=== PATIENT | female | born 1930 | race Caucasian/White ===

== ENCOUNTER 2017-05-12 05:52 | Inpatient (IN) ==
[2017-05-12 06:35] LABS: Basophils # 0.1 K/mcL (0.0-0.2); Basophils % 0.7 %; Eosinophils # 0.2 K/mcL (0.0-0.6); Eosinophils % 1.8 %; Hematocrit 35.9 % (35.3-44.9); Hemoglobin 11.8 g/dL (11.5-15.4); Immature Granulocytes % 0.5 % (0-4); Lymphocytes # 1.6 K/mcL (0.6-4.6); Lymphocytes % 15.3 %; Mean Corpuscular HGB Conc 32.9 g/dL (31.6-35.5); Mean Corpuscular Hemoglobin 30.4 pg (28.0-33.3); Mean Corpuscular Volume 92.5 fL (83.0-100.0); Mean Platelet Volume 10.7 fL (9.4-12.4); Monocytes # 0.6 K/mcL (0.0-1.3); Monocytes % 5.6 %; Neutrophils # 7.8 K/mcL (1.6-8.9); Platelet Count 155 K/mcL (140-400); Red Blood Count 3.88 M/mcL (3.82-4.97); Red Cell Distribution Width 13.4 % (11.5-14.5); Segmented Neutrophils % 76.1 %
[2017-05-12 06:40] LABS: INR 1.3
[2017-05-12 06:42] LABS: Activated Partial Thrombo Time 31.6 Seconds (26.0-36.0)
[2017-05-12 06:47] LABS: BUN/Creatinine Ratio 20 (6-26); Blood Urea Nitrogen 15 mg/dL (7-20); Calcium 9.2 mg/dL (8.6-10.8); Carbon Dioxide 25 mEq/L (19-29); Chloride 105 mEq/L (98-109); Glucose 113 mg/dL (70-99); Osmolality,Calculated 288 (280-300); Potassium 3.9 mEq/L (3.5-4.5); Sodium 138 mEq/L (136-145); eGFR For African Americans > 60 (> 60); eGFR For Non-African Americans > 60 (> 60)
--- NOTE | 2017-05-12 06:54 | Emergency Department Note ---
Disposition Clinical Impression: CVA (cerebral vascular accident) Qualifiers: CVA mechanism: thrombosis Precerebral and cerebral artery: unspecified precerebral artery Qualified Code(s): I63.00 - Cerebral infarction due to thrombosis of unspecified precerebral artery Disposition: Admitted As Inpatient Condition: Critical Time of Disposition: 07:09 General Adult HPI - General Chief complaint: ED Altered Mental Status Stated complaint: AMS Time Seen by Provider: 05/12/17 06:00 Source: patient, family, EMS Limitations: no limitations Nursing Notes Reviewed: Yes Vital Signs Reviewed: Yes - History of Present Illness HPI Narrative: Mrs. Stephenson, an 87yo female, presents from home via EMS. Patient alerted with her life alert button summoning EMS. She was found beside her bed on the floor with right-sided flaccidity. Patient was by herself. Her daughter's bedside. Last known well is 17:45 last night; 12 hours prior to arrival. Patient's baseline is that of independence; she was driving, managing her own lawn care, alert, active. PMH: Hyperlipidemia, hypothyroidism. No history of CAD, ACS, dysrhythmias, coagulopathies. Unknown if patient takes daily aspirin. Patient does not have daily anticoagulant. Pain Scale: 0 - Related Data Home Medications Medication Instructions Recorded Confirmed Atenolol [Tenormin] 25 mg PO DAILY 05/12/17 05/12/17 Pravastatin Sodium 10 mg PO DAILY 05/12/17 05/12/17 methIMAzole [Methimazole] 10 mg PO DAILY 05/12/17 05/12/17 Allergies Allergy/AdvReac Type Severity Reaction Status Date / Time No Known Allergies Allergy Verified 05/12/17 05:55 All systems ED: reviewed and negative except as stated. Past Medical History - Past Medical History Medical history: Reports: hyperlipidemia, thyroid disease - Social History Smoking Status: Current every day smoker Smokeless Tobacco Status: No Alcohol use: Reports: rarely Drug use: Reports: none Physical Exam Vital Signs Reviewed General: Patient is alert, oriented, and in denies pain. HEENT: Facial ghjzweokx-penyf-fwewu facial droop. Head is normocephalic and atraumatic. PERRLA, EOMI. oral mucosa tacky. Trachea midline. Cardiovascular: Heart regular rate and rhythm without clicks, rubs, gallops, or murmurs. No JVD. PMI nondisplaced. Respiratory: Symmetric chest rise with good respiratory effort. Bilateral breath sounds are clear without wheezing, crackles, or rhonchi. Abdomen: Bowel sounds present normoactive x-4 quadrants. Abdomen is soft, nondistended, and nontender. Musculoskeletal: Left upper extremity and left lower extremity strength is 0/5. Muscle strength 5/5 and symmetric in left upper and lower extremities. Neuro: Patient is nonverbal; unable to form words; communicating with nod/shake of head. Psych: Patient's affect is appropriate for situation. - General Limitations: no limitations General appearance: alert, in no apparent distress Course Course Narrative: Patient's presentation is concerning for acute CVA. Last known normal is 4 hours prior to arrival. As such, will not call a code stroke this time. Patient has profound generalized right sided weakness including right-sided facial droop, right upper and lower extremities full to the bed. She is unable to speak but does comprehend and is able to answer questions with a nod or shake of her head. She states that she is able to find words but simply cannot enunciate or verbalize. CT head does not show a hemorrhage. Patient has elevated troponin of 0.14. Patient is nothing by mouth at this time; will provide aspirin rectally. I discussed in detail with the daughter are concerned for her mother's symptoms and specifically touched on the therapeutic window and how the patient is well outside of this window. Discussed the need for inpatient admission with neurology consultation and MRI. She expresses understanding of this time though is understandably taken aback by the situation as a whole. Patient signed out to the day team, Dr. Marin. Pending: laboratory results To do: neurology consult, admission. Vital Signs Temperature 98.4 F 05/12/17 05:55 Pulse Rate 76 05/12/17 05:55 Respiratory Rate 14 05/12/17 05:55 Blood Pressure 169/99 05/12/17 05:55 O2 Sat by Pulse Oximetry 98 05/12/17 05:55 Temperature 98.7 F 05/12/17 18:52 Pulse Rate 77 05/12/17 18:52 Respiratory Rate 14 05/12/17 18:52 Blood Pressure 171/80 05/12/17 18:52 O2 Sat by Pulse Oximetry 93 05/12/17 18:52 Oxygen Delivery Oxygen Delivery Room Air Medical Decision Making - Lab Data Result diagrams: 05/12/17 06:27 05/12/17 06:25 Lab Results 05/12/17 05/12/17 05/12/17 Range/Units 05:57 06:05 06:25 WBC (4.3-11.1) K/mcL RBC (3.82-4.97) M/mcL Hgb (11.5-15.4) g/dL Hct (35.3-44.9) % MCV (83.0-100.0) fL MCH (28.0-33.3) pg MCHC (31.6-35.5) g/dL RDW (11.5-14.5) % Plt Count (140-400) K/mcL MPV (9.4-12.4) fL Immature Gran % (0-4) % Seg Neutrophils % % Lymphocytes % % Monocytes % % Eosinophils % % Basophils % % Neutrophils # (1.6-8.9) K/mcL Lymphocytes # (0.6-4.6) K/mcL Monocytes # (0.0-1.3) K/mcL Eosinophils # (0.0-0.6) K/mcL Basophils # (0.0-0.2) K/mcL Immature Plt Fraction (1.1-6.1) % PT 14.0 H (9.4-12.1) Seconds INR 1.3 APTT 31.6 (26.0-36.0) Seconds Sodium (136-145) mEq/L Potassium (3.5-4.5) mEq/L Chloride (98-109) mEq/L Carbon Dioxide (19-29) mEq/L BUN (7-20) mg/dL Creatinine (0.57-1.11) mg/dL Est GFR ( Amer) (> 60) Est GFR (Non-Af Amer) (> 60) BUN/Creatinine Ratio (6-26) Glucose (70-99) mg/dL POC Glucose 117 H (58-89) Calculated Osmolality (280-300) Calcium (8.6-10.8) mg/dL Troponin I (0-0.03) ng/mL Specimen Rejected Hemolyzed 05/12/17 05/12/17 05/12/17 Range/Units 06:25 06:25 06:27 WBC 10.3 (4.3-11.1) K/mcL RBC 3.88 (3.82-4.97) M/mcL Hgb 11.8 (11.5-15.4) g/dL Hct 35.9 (35.3-44.9) % MCV 92.5 (83.0-100.0) fL MCH 30.4 (28.0-33.3) pg MCHC 32.9 (31.6-35.5) g/dL RDW 13.4 (11.5-14.5) % Plt Count 155 (140-400) K/mcL MPV 10.7 (9.4-12.4) fL Immature Gran % 0.5 (0-4) % Seg Neutrophils % 76.1 % Lymphocytes % 15.3 % Monocytes % 5.6 % Eosinophils % 1.8 % Basophils % 0.7 % Neutrophils # 7.8 (1.6-8.9) K/mcL Lymphocytes # 1.6 (0.6-4.6) K/mcL Monocytes # 0.6 (0.0-1.3) K/mcL Eosinophils # 0.2 (0.0-0.6) K/mcL Basophils # 0.1 (0.0-0.2) K/mcL Immature Plt Fraction 6.0 (1.1-6.1) % PT (9.4-12.1) Seconds INR APTT (26.0-36.0) Seconds Sodium 138 (136-145) mEq/L Potassium 3.9 (3.5-4.5) mEq/L Chloride 105 (98-109) mEq/L Carbon Dioxide 25 (19-29) mEq/L BUN 15 (7-20) mg/dL Creatinine 0.76 (0.57-1.11) mg/dL Est GFR ( Amer) > 60 (> 60) Est GFR (Non-Af Amer) > 60 (> 60) BUN/Creatinine Ratio 20 (6-26) Glucose 113 H (70-99) mg/dL POC Glucose (58-89) Calculated Osmolality 288 (280-300) Calcium 9.2 (8.6-10.8) mg/dL Troponin I 0.14 H* (0-0.03) ng/mL Specimen Rejected Attestation Statement - Attestation Attestation: I, Zac Felton MD, personally evaluated this patient and discussed their management with the resident physician. I reviewed the resident's note and agree with the documented findings, medical decision making, and plan of care. 87-year-old female presents to the emergency department with acute neurological deficits. Last known well was 12 hours prior to arrival. Patient presents with complete a facial, right facial droop, and flaccid right arm and right leg. Patient unable to provide any history or review of systems. She is alert and follows commands. On examination patient is a well-developed well-nourished elderly female in no acute distress. She is alert. There is no cyanosis or diaphoresis. Breath sounds are clear and equal bilaterally. Heart regular rate and rhythm. Abdomen soft with normal bowel sounds. Patient has completed a facial. Right facial droop. Right arm and right leg are flaccid. She does have movement of the left arm and left leg. Head CT showed no acute intracranial abnormality. Labs reviewed and unremarkable other than troponin 0.13. At shift change patient [facility]. NIH Stroke Scale - Level of Consciousness LOC: Alert - LOC Questions LOC Questions: Answers both correctly - LOC Commands LOC Commands: Performs both correctly - Best Gaze Best Gaze: Normal - Visual Visual: No visual loss - Facial Palsy Facial Palsy: Partial, total, or near-total paralysis of lower face - Motor Arms Motor Arm-Left: No drift for 10 seconds Motor Arm-Right: No effort against gravity, limb falls to bed, some movement - Motor Legs Motor Leg-Left: No drift for 5 seconds Motor Leg-Right: No effort against gravity, limb falls to bed, some movement - Limb Ataxia Limb Ataxia: Absent of affected limb too weak to perform exam - Sensory Sensory: Mild to moderate loss, "not as sharp" - Best Language Best Language: Mute, no usable speech - Dysarthria Dysarthria: Severe, slurred speech unintelligible or mute - Extinction and Inattention Extinction and Inattention: Normal - NIHSS Total Score NIHSS Total Score: 14
--- NOTE | 2017-05-12 07:28 | Emergency Department Note ---
Disposition Clinical Impression: CVA (cerebral vascular accident) Qualifiers: CVA mechanism: unspecified Qualified Code(s): I63.9 - Cerebral infarction, unspecified Disposition: Admitted As Inpatient Condition: Critical Referrals: Priyanka Torres MD [Primary Care Provider] - Forms: ED Satisfaction Letter Time of Disposition: 07:28 General Adult HPI - General Chief complaint: ED Altered Mental Status Stated complaint: Weakness/AMS Time Seen by Provider: 05/12/17 06:00 Source: patient, family, EMS Limitations: no limitations - History of Present Illness Pain Scale: 0 - Related Data Home Medications Medication Instructions Recorded Confirmed Atenolol [Tenormin] 25 mg PO DAILY 05/12/17 05/12/17 Pravastatin Sodium 10 mg PO DAILY 05/12/17 05/12/17 methIMAzole [Methimazole] 10 mg PO DAILY 05/12/17 05/12/17 Allergies Allergy/AdvReac Type Severity Reaction Status Date / Time No Known Allergies Allergy Verified 05/12/17 05:55 Past Medical History - Past Medical History Medical history: Reports: hyperlipidemia, thyroid disease - Social History Smoking Status: Current every day smoker Smokeless Tobacco Status: No Alcohol use: Reports: rarely Drug use: Reports: none Physical Exam - General Limitations: no limitations General appearance: alert, in no apparent distress Course - Reevaluation(s) Reevaluation #1: 87-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 Workup included a CT scan which was negative. Patient does not meet criteria for TPA. Consultation with neurology and they will see the patient in consultation. Time: 07:27 - Consultations Consultation #1: Discussed with , admit. Time: 07:42 Vital Signs Temperature 98.4 F 05/12/17 05:55 Pulse Rate 76 05/12/17 05:55 Respiratory Rate 14 05/12/17 05:55 Blood Pressure 169/99 05/12/17 05:55 O2 Sat by Pulse Oximetry 98 05/12/17 05:55 Temperature 98.4 F 05/12/17 05:55 Pulse Rate 71 05/12/17 07:37 Respiratory Rate 19 05/12/17 07:37 Blood Pressure 155/83 05/12/17 07:37 O2 Sat by Pulse Oximetry 96 05/12/17 06:46 Oxygen Delivery Oxygen Delivery Room Air Medical Decision Making - Lab Data Lab results reviewed: Yes I reviewed the patient's lab results. Result diagrams: 05/12/17 06:27 05/12/17 06:25 Lab Results 05/12/17 05/12/17 05/12/17 Range/Units 06:05 06:25 06:25 WBC (4.3-11.1) K/mcL RBC (3.82-4.97) M/mcL Hgb (11.5-15.4) g/dL Hct (35.3-44.9) % MCV (83.0-100.0) fL MCH (28.0-33.3) pg MCHC (31.6-35.5) g/dL RDW (11.5-14.5) % Plt Count (140-400) K/mcL MPV (9.4-12.4) fL Immature Gran % (0-4) % Seg Neutrophils % % Lymphocytes % % Monocytes % % Eosinophils % % Basophils % % Neutrophils # (1.6-8.9) K/mcL Lymphocytes # (0.6-4.6) K/mcL Monocytes # (0.0-1.3) K/mcL Eosinophils # (0.0-0.6) K/mcL Basophils # (0.0-0.2) K/mcL Immature Plt Fraction (1.1-6.1) % PT 14.0 H (9.4-12.1) Seconds INR 1.3 APTT 31.6 (26.0-36.0) Seconds Sodium 138 (136-145) mEq/L Potassium 3.9 (3.5-4.5) mEq/L Chloride 105 (98-109) mEq/L Carbon Dioxide 25 (19-29) mEq/L BUN 15 (7-20) mg/dL Creatinine 0.76 (0.57-1.11) mg/dL Est GFR ( Amer) > 60 (> 60) Est GFR (Non-Af Amer) > 60 (> 60) BUN/Creatinine Ratio 20 (6-26) Glucose 113 H (70-99) mg/dL Calculated Osmolality 288 (280-300) Calcium 9.2 (8.6-10.8) mg/dL Troponin I (0-0.03) ng/mL Specimen Rejected Hemolyzed 05/12/17 05/12/17 Range/Units 06:25 06:27 WBC 10.3 (4.3-11.1) K/mcL RBC 3.88 (3.82-4.97) M/mcL Hgb 11.8 (11.5-15.4) g/dL Hct 35.9 (35.3-44.9) % MCV 92.5 (83.0-100.0) fL MCH 30.4 (28.0-33.3) pg MCHC 32.9 (31.6-35.5) g/dL RDW 13.4 (11.5-14.5) % Plt Count 155 (140-400) K/mcL MPV 10.7 (9.4-12.4) fL Immature Gran % 0.5 (0-4) % Seg Neutrophils % 76.1 % Lymphocytes % 15.3 % Monocytes % 5.6 % Eosinophils % 1.8 % Basophils % 0.7 % Neutrophils # 7.8 (1.6-8.9) K/mcL Lymphocytes # 1.6 (0.6-4.6) K/mcL Monocytes # 0.6 (0.0-1.3) K/mcL Eosinophils # 0.2 (0.0-0.6) K/mcL Basophils # 0.1 (0.0-0.2) K/mcL Immature Plt Fraction 6.0 (1.1-6.1) % PT (9.4-12.1) Seconds INR APTT (26.0-36.0) Seconds Sodium (136-145) mEq/L Potassium (3.5-4.5) mEq/L Chloride (98-109) mEq/L Carbon Dioxide (19-29) mEq/L BUN (7-20) mg/dL Creatinine (0.57-1.11) mg/dL Est GFR ( Amer) (> 60) Est GFR (Non-Af Amer) (> 60) BUN/Creatinine Ratio (6-26) Glucose (70-99) mg/dL Calculated Osmolality (280-300) Calcium (8.6-10.8) mg/dL Troponin I 0.14 H* (0-0.03) ng/mL Specimen Rejected - Radiology Data Radiology results reviewed: Yes I reviewed the patient's radiology results. Head CT 05/12/17 06:02 IMPRESSION: No acute intracranial abnormality. Mild chronic small vessel ischemic disease within the periventricular white matter D/ / Joseph Bowen MD / Joseph Bowen MD Interpreting Provider: Joseph Bowen MD - EKG Data EKG #1 EKG attestation: Yes I reviewed and interpreted this EKG. EKG shows normal: sinus rhythm Rate: normal Rhythm: NSR Interpretation: no acute changes
[2017-05-12] MEDS ORDERED: *HR* Morphine 2 MG/ML SYRINGE IVP PRN (10:28)
[2017-05-12] MEDS ORDERED: Naloxone 0.4 MG/ML INJ IVP PRN (10:28)
[2017-05-12] MEDS ORDERED: Ondansetron 4 MG/2 ML VIAL IVP PRN (10:28)
[2017-05-12] MEDS ORDERED: Nicotine 21 MG PATCH.TD24 TD PRN (10:40)
[2017-05-12] MEDS: 0.9 % Sodium Chloride 1,000 ML IVC SCH (11:13)
--- NOTE | 2017-05-12 12:44 | Neurology - Consult Note ---
Date of Encounter: 05/12/17 Time of Encounter: 12:42 Assessment and Plan (1) CVA (cerebral vascular accident) Current Visit: Yes Status: Acute Patient is an 87 year old woman with HTN who developed acute onset of speech difficulty, mutism, right sided weakness. LKW 12 hours prior to evaluation. MRI of brain showed acute cerebral infarct to both hemisphere as well as left basal ganglia. this is concerning for embolic (central) or bilateral thromboembolic events. Will need full stroke work up including CTA of neck and brain, VINCENT. carotid artery duplex and Dr. James Vergara is onboard and discuss with the carotid artery duplex findings. While stroke work up is being completed will start her on Heprain drip no bolus. Will recommend VINCENT to assess source of emboli. Expected that the patient will have substantial speech deficit and right sided weakness due to the fact the left BG size is large. Continue DTV prophylaxis, swallow evaluation, speech therapy and inpatient PT. Qualifiers: CVA mechanism: thrombosis Precerebral and cerebral artery: unspecified precerebral artery Qualified Code(s): I63.00 - Cerebral infarction due to thrombosis of unspecified precerebral artery History of Present Illness Chief complaint: inability to talk, right sided weakness HPI: Ms. Stephenson is a 87 year old female with PMH significant for HTN, hyperthyroidism hyperlipidemia who developed acute onset of speech difficulty and right sided weakness. Daughter Angela reported that the yesterday about 4-5pm the patient's life monitoring device went off and medical squad was notified. The patient was found to have speech difficulty and right sided weakness. Patient was subsequently brought to ER and her last known well time was about 12 hours earlier. She was thought not to be a candidate for tPA thrombolysis. MRI of brain showed IMPRESSION: Acute infarct within the left mid strickland radiata extending into the ipsilateral basal ganglia, with additional microinfarcts seen within the high left frontoparietal lobe and right parieto-occipital lobe. Possible partial thrombosis of the left MCA. Patient current is mute and has left head and eye gaze preference and right sided paralysis. She does not make eye contact but does follow simple commands. Past Med Surg Social Fam HX - Past Medical History Medical history: hyperlipidemia, thyroid disease - Social History Smoking Status: Current every day smoker Packs per day: .5 Smokeless Tobacco Status: No Alcohol use: rarely Drug use: none - Family History Mother Living Status: Hx Family Cardiac Disorders: Yes Medications and Allergies Atenolol [Tenormin] 25 mg PO DAILY 05/12/17 [History] Pravastatin Sodium 10 mg PO DAILY 05/12/17 [History] methIMAzole [Methimazole] 10 mg PO DAILY 05/12/17 [History] 3 Allergy/AdvReac Type Severity Reaction Status Date / Time No Known Allergies Allergy Verified 05/12/17 05:55 All Systems: A 10-system review of systems was performed and is negative for pertinent findings except as documented above in the HPI. Physical Examination - Vital Signs Vital Signs: Initial Vital Signs Temp Pulse Resp BP Pulse Ox 98.4 F 76 14 169/99 98 05/12/17 05:55 05/12/17 05:55 05/12/17 05:55 05/12/17 05:55 05/12/17 05:55 - Constitutional General appearance: chronically ill - Neurologic Sensorimotor examination: other (Unable to assess due to aphasia) Motor examination - right side: 2/5: deltoids, biceps, triceps, wrist flexion, wrist extension, pulmonary nurse practitioner, 4/5: hip flexors, tibialis Anterior, quadriceps, toe extension (EHL), plantarflexion Motor examination - left side: 5/5: deltoids, biceps, triceps, wrist flexion, wrist extension, hip flexors, pulmonary nurse practitioner, quadriceps, tibialis Anterior, toe extension (EHL), plantarflexion Detailed sensory examination: other (unable to assess due to aphasia) Posture: other Reflex and gait examination: other (Gait not assessed) Reflexes: Biceps: 1+, Triceps: 1+, Brachioradialis: 1+, Patella: 1+, Achilles: 1 + Mental Status Examination: awake, alert, follows simple commands, expressive aphasia (Patient essentially mute) Cranial nerve examination: PERRL, EOMI (gaze preference to left side, along with head preference to the left side as well), visual childers intact (Unable to assess), corneal reflexes brisk symmetrically, sensory to face intact, mastication intact, no facial asymmetry is present, no dysarthria (Patient is mute), soft palate elevates bilaterally upon phonation (Uanble to assess), gag reflex intact (Unable to assess), flexes SCM and trapezius muscles symmetrically with full power (Unable to assess) Results - Laboratory Findings CBC and BMP: 05/12/17 06:27 05/12/17 06:25 Abnormal lab findings: Abnormal lab results PT 14.0 Seconds (9.4-12.1) H 05/12/17 06:25 Glucose 113 mg/dL (70-99) H 05/12/17 06:25 Troponin I 0.12 ng/mL (0-0.03) H* 05/12/17 10:59 Consult Discharge Plan - Plan Referrals: Priyanka Torres MD [Primary Care Provider] -
--- NOTE | 2017-05-12 14:35 | Internal Med History&Physical ---
Date of Encounter: 05/12/17 Time of Encounter: 09:30 Assessment and Plan (1) CVA (cerebral vascular accident) Current visit: Yes Status: Acute New-onset of motor aphasia and right-sided weakness. CT head shows no acute infarct/bleed. Will get MRI brain, bilateral carotid Doppler and transthoracic echocardiogram.continue telemetry monitoring, cycle troponins. Noted to have mild troponin elevation, possibly related to acute stroke. Continue rectal aspirin. Check lipid profile and hemoglobin A1c. Monitor blood pressure closely. Neurology has been consulted by emergency room physician, will follow-up recommendations. Bedside swallow evaluation. Physical and occupational therapy evaluation. Qualifiers: CVA mechanism: thrombosis Precerebral and cerebral artery: unspecified precerebral artery Qualified Code(s): I63.00 - Cerebral infarction due to thrombosis of unspecified precerebral artery (2) Essential hypertension Current visit: Yes Status: Chronic Blood pressure currently stable. He will allow permissive hypertension, will use when necessary IV hydralazine for appropriate control. Unable to take oral antihypertensives at this time. (3) Tobacco abuse Current visit: Yes Status: Chronic Smoking cessation counseling cannot be done at this time due to patient's mental status. We will order nicotine transdermal patch as needed. (4) Graves disease Current visit: Yes Status: Chronic Check thyroid function profile. We will hold methimazole for now as she cannot tolerate by mouth meds. Internal Medicine - H&P: HPI Chief complaint: Aphasia Admitted From: Emergency Dept Plans for Post Hospital Care: Transfer Group Home Facility History of present illness: Ms. Stephenson is a 87 year old female with history of tobacco abuse was brought in by EMS after her medical life alert was activated. She is currently unable to provide any history, which is up to and from her daughters at bedside. Patient is usually healthy with good functional status, ADL independent and lives alone at home. Upon arrival, patient was noted to be lying on the floor beside her bed. Last known time of feeling well was last evening at around 1745 by her daughter. The patient was unable to speak since she was found although she seems to understand. She does have a baseline hearing loss. She was also unable to move her right hand and leg since this morning. No reported recent infections. No cough, chest congestion, urinary complaints, fever or chills in the recent past. No vomiting or respiratory distress noted when the patient was found. Past Med Surg Social Fam HX - Past Medical History Medical history: hyperlipidemia, hypertension, thyroid disease - Past Surgical History Surgical History: other (Tubal ligation and reversal, spinal surgery), vascular surgery (Varicose vein stripping ) - Social History Smoking Status: Current every day smoker Packs per day: 0.75 Smokeless Tobacco Status: No Alcohol use: rarely Drug use: none Occupational status: disabled Current living situation: Home - Independent Activity Level: Independent ambulation Recent Out of Country Travel Within the Last 8 Weeks: No Exposure or Possible Exposure to Illness During Travel: No - Family History Mother Living Status: Hx Family Cardiac Disorders: Yes Internal Medicine - H&P: Meds Atenolol [Tenormin] 25 mg PO DAILY 05/12/17 [History] Pravastatin Sodium 10 mg PO DAILY 05/12/17 [History] methIMAzole [Methimazole] 10 mg PO DAILY 05/12/17 [History] 3 Allergy/AdvReac Type Severity Reaction Status Date / Time No Known Allergies Allergy Verified 05/12/17 05:55 All Systems PM: A 10-system review of systems was performed and is negative for pertinent findings except as documented above in the HPI. - Constitutional Constitutional: fatigue, weakness, no chills, no fever(s), no night sweats - EENT Eyes: no change in vision, no discharge, no pain, no photophobia Ears: no ear discharge, no ear pain, no tinnitus Nose, mouth and throat: no dysphagia, no nasal discharge, no neck pain, no sore throat - Cardiovascular Cardiovascular ROS IM: no chest pain, no diaphoresis, no dyspnea, no lightheadedness, no palpitations, no syncope - Respiratory Respiratory: no cough, no dyspnea, no wheezing, no excessive phlegm production - Gastrointestinal Gastrointestinal: no abdominal pain, no diarrhea, no hematemesis, no hematochezia, no melena, no nausea, no vomiting - Genitourinary Genitourinary: no change in urinary stream, no dysuria, no flank pain, no hematuria - Musculoskeletal Musculoskeletal ROS IM: muscle weakness, numbness, no tingling - Integumentary Integumentary IM: no rash, no unusual bruising - Neurological Neurological ROS: as per HPI, abnormal speech, numbness, weakness - Hematologic/Lymphatic Hematologic/Lymphatic: no easy bruising - Constitutional Vitals: Temp Pulse Resp BP Pulse Ox 97.7 F 71 15 147/77 95 05/12/17 11:29 05/12/17 11:29 05/12/17 11:29 05/12/17 11:29 05/12/17 11:29 General appearance: Present: A&O X 1. Absent: answers questions appropriately - Respiratory Respiratory exam: Present: CTAB (Coarse breath sounds anterolaterally ). Absent : accessory muscle use, rales, rhonchi, wheezes - Cardiovascular Cardiovascular exam: Present: RRR, +S1, +S2. Absent: diastolic murmur, gallop, rubs, systolic murmur - GI/Abdominal GI/Abdominal exam: Present: normal bowel sounds, soft, no peritoneal signs. Absent: distended, tenderness - Extremities Exam Extremities exam: Present: full ROM (Restricted in right upper and lower extremity ), warm, radial pulses palpable and symmetrical. Absent: calf tenderness, cyanotic, pedal edema - Neurological Exam Neurological exam: Present: CN II-XII intact (right facial droop), no focal deficits (right-sided weakness), strengths equal and symetr throughout (motor power 0/5 in right UE and LE), pronater drift, facial droop, speech deficit ( global aphasia- motor) - Skin Skin exam: Present: dry, intact Internal Med - H&P Results - Labs CBC & Chem 7: 05/12/17 06:27 05/12/17 06:25 Labs: Cardiac Enzymes 05/12/17 Range/Units 10:59 Troponin I 0.12 H* (0-0.03) ng/mL - EKG Data -: EKG Interpreted by Myself EKG shows normal: sinus rhythm Rate: normal
--- NOTE | 2017-05-12 16:59 | Electrocardiograph Report ---
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
[2017-05-12] MEDS ORDERED: *HR* Heparin 5,000 UNIT/ML VIAL SQ SCH (18:00)
[2017-05-12] MEDS ORDERED: *HR* Heparin 5,000 UNIT/ML VIAL IVP PRN (18:18)
[2017-05-12] MEDS ORDERED: Heparin 25,000 UNIT/500 ML D5W 25,000 UNIT/500 ML MLS IVC SCH (18:30)
--- NOTE | 2017-05-12 18:58 | Vascular/Endovasc Consult Note ---
Date of Encounter: 05/12/17 Time of Encounter: 18:56 Assessment and Plan (1) CVA (cerebral vascular accident) Current Visit: Yes Status: Acute Patient has dense right hemiplegia with a fascia. MRI imaging demonstrates a left basal ganglia stroke and scattered areas in both hemispheres. Dr. Blanca and I reviewed these images together. The carotid artery stenosis clearly does not explain all of these lesions and another source is possible. Therefore the patient will be placed on intravenous heparin temporarily due to the diffuse nature of the areas of stroke and a transesophageal echocardiogram will be ordered for tomorrow. I reviewed these findings with the patient's daughters as there were 3 daughters in the room with her when I was in to examine her. I explained that surgical intervention at this time is not indicated and that if the patient demonstrates significant neurologic improvement we could discuss potential carotid endarterectomy in the future. I also explained the indication for the echocardiogram. Qualifiers: CVA mechanism: thrombosis Precerebral and cerebral artery: unspecified precerebral artery Qualified Code(s): I63.00 - Cerebral infarction due to thrombosis of unspecified precerebral artery - History of Present Illness Consult date: 05/12/17 Consult reason: Acute stroke and carotid artery stenosis Chief complaint: Acute stroke History of present illness: Ms. Stephenson is a 87 year old female Was admitted via the ER with an acute stroke. The patient had right sided hemiplegia and aphasia. Patient was admitted for further workup. A number of imaging studies were obtained. This included a CT and MR as well as echocardiogram and a carotid duplex scan. The MRI demonstrates an area of acute stroke in the left basal ganglia as well as diffuse scattered lesions in both hemispheres. The duplex scan shows a marked elevation in the right internal to common carotid artery ratio to 3.3 with a high-grade lesion at the bulbar and bifurcation area in the range of approximately 80-99% and a significant lesion in the right internal carotid artery of 60-79%. The left internal carotid artery has nonstenotic plaque. Past Med Surg Social Fam HX - Past Medical History Medical history: hyperlipidemia, thyroid disease - Past Surgical History Surgical History: other (Tubal ligation and reversal, spinal surgery), vascular surgery (Varicose vein stripping ) - Social History Smoking Status: Current every day smoker Packs per day: .5 Smokeless Tobacco Status: No Alcohol use: rarely Drug use: none - Family History Mother Living Status: Hx Family Cardiac Disorders: Yes Medications and Allergies Atenolol [Tenormin] 25 mg PO DAILY 05/12/17 [History] Pravastatin Sodium 10 mg PO DAILY 05/12/17 [History] methIMAzole [Methimazole] 10 mg PO DAILY 05/12/17 [History] 3 Allergy/AdvReac Type Severity Reaction Status Date / Time No Known Allergies Allergy Verified 05/12/17 05:55 All Systems Review: A 10-system review of systems was performed and is negative for pertinent findings except as documented above in the HPI. Exam Vital Signs, Last 4 Hours Temp Pulse Resp BP Pulse Ox 05/12/17 18:52 98.7 F 77 14 171/80 93 05/12/17 17:10 98.6 F 78 14 176/80 95 HEENT: Present: Atraumatic, Trachea midline Neck: Absent: JVD, Lymphadenopathy, Left Carotid bruit, Right Carotid bruit, Midline deformity, Tracheal deviation Cardiac: Present: Reg Rate and Rhythm, Normal S1 and S2 Lungs: Present: Normal Breath Sounds Neuro: Present: Other (Patient has a dense right hemiplegia. Patient is a phasic. The patient does have some spontaneous motion and does move her eyes though she has a right sided neglect.) Abdomen: Present: Soft, Non-tender Vascular: Present: Normal capillary refill Consult Discharge Plan - Plan Referrals: Priyanka Torres MD [Primary Care Provider] -
[2017-05-12 19:56] LABS: Hematocrit 34.8 % (35.3-44.9); Hemoglobin 11.7 g/dL (11.5-15.4); Immature Platelets 5.8 % (1.1-6.1); Mean Corpuscular HGB Conc 33.6 g/dL (31.6-35.5); Mean Corpuscular Hemoglobin 30.8 pg (28.0-33.3); Mean Corpuscular Volume 91.6 fL (83.0-100.0); Red Blood Count 3.8 M/mcL (3.82-4.97); Red Cell Distribution Width 13.5 % (11.5-14.5)
[2017-05-12 20:01] LABS: INR 1.3
[2017-05-13 00:39] LABS: Basophils # 0.1 K/mcL (0.0-0.2); Basophils % 0.6 %; Eosinophils # 0.2 K/mcL (0.0-0.6); Eosinophils % 1.5 %; Hematocrit 33.9 % (35.3-44.9); Hemoglobin 11.4 g/dL (11.5-15.4); Immature Granulocytes % 0.4 % (0-4); Lymphocytes % 19.9 %; Mean Corpuscular HGB Conc 33.6 g/dL (31.6-35.5); Mean Corpuscular Hemoglobin 31.1 pg (28.0-33.3); Mean Corpuscular Volume 92.6 fL (83.0-100.0); Mean Platelet Volume 11.1 fL (9.4-12.4); Monocytes # 0.6 K/mcL (0.0-1.3); Monocytes % 5.6 %; Platelet Count 161 K/mcL (140-400); Red Blood Count 3.66 M/mcL (3.82-4.97); Red Cell Distribution Width 13.4 % (11.5-14.5)
[2017-05-13 00:52] LABS: BUN/Creatinine Ratio 19 (6-26); Blood Urea Nitrogen 13 mg/dL (7-20); Calcium 8.7 mg/dL (8.6-10.8); Carbon Dioxide 22 mEq/L (19-29); Chloride 104 mEq/L (98-109); Cholesterol 174 mg/dL (< 200); Glucose 112 mg/dL (70-99); HDL Cholesterol 35 mg/dL (40-59); LDL Cholesterol,Calculated 111 mg/dL (0-99); Magnesium 1.9 mg/dL (1.6-2.6); Osmolality,Calculated 285 (280-300); Potassium 3.6 mEq/L (3.5-4.5); Sodium 137 mEq/L (136-145); Triglycerides 142 mg/dL (< 150); eGFR For African Americans > 60 (> 60); eGFR For Non-African Americans > 60 (> 60)
[2017-05-13 02:15] LABS: Thyroid Stimulating Hormone 1.052 mcIU/mL (0.350-4.840)
[2017-05-13] MEDS: 0.9 % Sodium Chloride 1,000 ML IVC SCH (05:42)
[2017-05-13] MEDS: *HR* Heparin 5,000 UNIT/ML VIAL IVP PRN ×2 (10:00→17:17)
[2017-05-13] MEDS: Pantoprazole 40 MG VIAL IVP SCH (10:01)
[2017-05-13] MEDS ORDERED: *HR* FentaNYL (PF) 100 MCG/2 ML VIAL IVP PRN (12:26)
[2017-05-13] MEDS ORDERED: *HR* Midazolam HCl 5 MG/5 ML VIAL IVP PRN (12:27)
[2017-05-13] MEDS ORDERED: Tetracaine/Benzocaine/Butamben 200MG/SPRAY (100SPY/BOT) MM ONE (12:27)
[2017-05-13] MEDS ORDERED: 0.9 % Sodium Chloride 500 ML IVC ONE (12:27)
--- NOTE | 2017-05-13 13:43 | Vascular/Endovas Progress Note ---
Date of Encounter: 05/13/17 Time of Encounter: 13:41 - Assessment and plan (1) CVA (cerebral vascular accident) Current Visit: Yes Status: Acute Patient has dense right hemiplegia with a fascia. MRI imaging demonstrates a left basal ganglia stroke and scattered areas in both hemispheres. Dr. Blanca and I reviewed these images together. The carotid artery stenosis clearly does not explain all of these lesions and another source is possible. Therefore the patient will be placed on intravenous heparin temporarily due to the diffuse nature of the areas of stroke and a transesophageal echocardiogram will be ordered for tomorrow. I reviewed these findings with the patient's daughters as there were 3 daughters in the room with her when I was in to examine her. I explained that surgical intervention at this time is not indicated and that if the patient demonstrates significant neurologic improvement we could discuss potential carotid endarterectomy in the future. I also explained the indication for the echocardiogram. VINCENT pending from today. Qualifiers: CVA mechanism: thrombosis Precerebral and cerebral artery: unspecified precerebral artery Qualified Code(s): I63.00 - Cerebral infarction due to thrombosis of unspecified precerebral artery - Subjective Interval history: Patient was not in the room on my visit. 2 of the daughters were there and I spoke with them. The patient was up earlier today in a chair. The CT angiogram demonstrates the high-grade and critical right carotid stenosis as depicted on the duplex scan. In addition she was found to have a lesion in the lung as well as lymphadenopathy and an enlarged thyroid. This raises the issue of malignancy and potential hypercoagulable state. Patient had abnormal swallowing study. VINCENT is pending at the time of this dictation. Vital Signs, Last 4 Hours Temp Pulse Resp BP Pulse Ox 05/13/17 12:54 98.4 F 73 20 164/71 95 05/13/17 11:27 99.3 F 77 14 156/81 95 Exam: Patient not in room at the time of my rounding. Results 05/13/17 00:18 05/13/17 00:18 Lab Results, Last 24 hours 05/12/17 05/12/17 05/12/17 17:56 19:35 19:35 WBC 8.7 Hgb 11.7 Hct 34.8 L Plt Count 167 INR 1.3 APTT Sodium Potassium Chloride Carbon Dioxide BUN Creatinine Glucose Calcium Magnesium Troponin I 0.13 H* TSH 05/13/17 05/13/17 05/13/17 00:18 00:18 00:18 WBC 9.8 Hgb 11.4 L Hct 33.9 L Plt Count 161 INR APTT Sodium 137 Potassium 3.6 Chloride 104 Carbon Dioxide 22 BUN 13 Creatinine 0.70 Glucose 112 H Calcium 8.7 Magnesium 1.9 Troponin I 0.12 H* TSH 05/13/17 05/13/17 05/13/17 00:18 00:18 07:00 WBC Hgb Hct Plt Count INR APTT 61.7 H D 56.0 H Sodium Potassium Chloride Carbon Dioxide BUN Creatinine Glucose Calcium Magnesium Troponin I TSH 1.052 - Imaging / Other Tests CT/CTA: image reviewed Consult Discharge Plan - Plan Referrals: Priyanka Torres MD [Primary Care Provider] -
--- NOTE | 2017-05-13 16:48 | Oncology Inp Consult Note ---
Date of Encounter: 05/13/17 Time of Encounter: 16:30 Assessment and Plan (1) Mediastinal lymphadenopathy Status: Acute Assessment and plan: - Found incidentally in neck CT angio performed as part of her work up for recent CVA. - Findings are concerning for metastatic disease, and included an enlarged lymph node in he anterior mediastinum measuring up to 14 mm. There is a 15 mm speculated node within the right upper lobe, as well as multiple hypoattenuating masses within an enlarged thyroid gland measuring up to 17 mm in dimateter within the left thyroid lobe. - By palpation there seem to be an accessible node in the left supra clavicular node, in case biopsy is required. - I discussed with Ms. Stephenson and her daughters the incidental CT neck findings and my concerns of an underlying malignant disorder as the cause of her lymphadenopathy. I discussed my recommendations to complete a CT chest, abdomen and pelvis. She and her family expressed agreement with this. - I discussed too my recommendation to perform a CT guided biopsy of an amenable lymphadenopathy. - I explained to Ms. Stephenson and her family, that if in fact these lesions are secondary to cancer, further recommendations would be based on the pathology results, since the treatment options are very diverse. In view of her poor performance status and recent stroke, she would not be a candidate to chemotherapy, but she could be a candidate to more tolerable treatments ( e.g IA if the lesions inspector returned materials to be ER positive BC). Recommendations: - Please order CT chest, abdomen and pelvis. - Please request IR consultation to consider a CT guided biopsy of upper thoracic lymphadenopathy. There seem to be a palpable lymphadenopathy in the left supra clavicular area that could be amenable for CT guided biopsy. Alternatively, it's ok to await for completion of CT chest, abdomen/pelvis in case there is an more accessible lesion. - Check tumor markers: CA19,9 ; CA-125, CA27-29; AFP, CEA, LDH, TSH, thyroglobuline. - Data of Consult Requesting Physician: Lynn Norman MD Primary Care Provider: Priyanka Torres MD - Consult Narrative Reason for consult: mediastinal lymphadenopathy History of present illness: Ms. Stephenson is a 87 year old female with history of thyroid disease admitted after suffering CVA. She was seen with her daughters at the bedside, who report that she was seen yesterday, being in her usual state of health. Patient is unable to speak, but seems to have a good understanding. Apparently other than cold like symptoms, she was feeling ok, denies any recent history of weight loss , nausea, vomiting, diarrhea, abdominal pain, fever. She was brought to the hospital afteer the patient's life monitoring device went off and medical squad was notified. She was brought to the hospital and brain imaging revealed findings consistent with acute infarct in the left mid strickland radiata extending into the ipsilateral basal ganglia. Since then she has experienced motor aphasia , and unable to move the right side of her body. Incidentally, while undergoing a CT neck, she was found radiologic findings concerning for metastatic disease at the level of the upper and anterior mediastinum. Ms. Stephenson and her daughters reports that that was not getting screening mammograms for a while. She reports not history of screening colonoscopy. 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 Her daughters report that she was actively smoking prior to current admission. Past Med Surg Social Fam HX - Past Medical History Medical history: hyperlipidemia, hypertension, thyroid disease Psychiatric history: no psych history - Past Surgical History Surgical History: orthopedic, other, other, vascular surgery - Social History Smoking Status: Current every day smoker Packs per day: .5 Smokeless Tobacco Status: No Alcohol use: rarely Drug use: none - Family History Mother Living Status: Hx Family Cardiac Disorders: Yes Medications and Allergies Atenolol [Tenormin] 25 mg PO DAILY 05/12/17 [History] Pravastatin Sodium 10 mg PO DAILY 05/12/17 [History] methIMAzole [Methimazole] 10 mg PO DAILY 05/12/17 [History] 3 Allergy/AdvReac Type Severity Reaction Status Date / Time No Known Allergies Allergy Verified 05/12/17 05:55 Constitutional: Absent: fever(s), frequent falls, headache(s) Eyes: Absent: blurry vision Nose, mouth and throat: Absent: abnormal hearing Cardiovascular: Absent: dyspnea on exertion, edema Respiratory: Present: cough. Absent: dyspnea, hemoptysis Gastrointestinal: Absent: abdominal pain, hematemesis Genitourinary: Absent: hematuria Musculoskeletal: Present: muscle weakness Neurological: Present: abnormal speech, weakness. Absent: radicular pain Psychiatric: Absent: hallucinations Hematologic/Lymphatic: Present: as per HPI Oncology - Exam - Constitutional Vitals: Temp Pulse Resp BP Pulse Ox 98.1 F 71 14 156/79 97 05/13/17 15:21 05/13/17 15:21 05/13/17 15:21 05/13/17 15:21 05/13/17 15:21 - Head Head exam: Present: atraumatic - Eye Eye exam: Absent: periorbital swelling - ENT ENT exam: Present: normal oropharynx - Neck Neck exam: Present: lymphadenopathy (left upper supra clavicular lymphadenopathy ) - Respiratory Respiratory exam: Present: CTAB. Absent: rales - Cardiovascular Cardiovascular exam: Present: RRR. Absent: systolic murmur - GI/Abdominal GI/Abdominal exam: Present: normal bowel sounds. Absent: organomegaly, rebound - Extremities Exam Extremities exam: Present: normal inspection. Absent: pedal edema - Neurological Exam Neurological exam: Present: alert, speech deficit. Absent: no focal deficits ( focal deficits, hemiparesis, motor aphasia.) - Skin Skin exam: Present: normal color Oncology - Results Labs: Short CBC 05/12/17 05/13/17 Range/Units 19:35 00:18 WBC 8.7 9.8 (4.3-11.1) K/mcL Hgb 11.7 11.4 L (11.5-15.4) g/dL Hct 34.8 L 33.9 L (35.3-44.9) % Plt Count 167 161 (140-400) K/mcL Neutrophils # 7.0 (1.6-8.9) K/mcL BMP 05/13/17 00:18 Sodium 137 Potassium 3.6 Chloride 104 Carbon Dioxide 22 BUN 13 Creatinine 0.70 Glucose 112 H Calcium 8.7 Cardiac Enzymes 05/12/17 05/13/17 Range/Units 17:56 00:18 Troponin I 0.13 H* 0.12 H* (0-0.03) ng/mL Consult Discharge Plan - Plan Referrals: Priyanka Torres MD [Primary Care Provider] -
--- NOTE | 2017-05-13 16:50 | Neurology Progress Note ---
Date of Encounter: 05/13/17 Time of Encounter: 16:47 Assessment and Plan (1) CVA (cerebral vascular accident) Current Visit: Yes Status: Acute Embolic stroke involving both hemisphere with coexisting right ICA critical stenosis, left MCA M1 occlusion. No significant pathology on TTE. VINCENT completed and result is pending. Patient is on Heparin drip per stroke protocol. Once VINCENT result is available, heparin drip can be discontinued if no source of emboli can be identified and if no other indication for anticoagulation can be identified. If no anticoagulation is needed then i would suggest a combination of Plavix 75mg daily and aspirin 81mg daily. Patient needs PT. Oncology on board for evaluation of small lung nodule and possible mediastinal metastasis. Qualifiers: CVA mechanism: embolism Precerebral and cerebral artery: unspecified precerebral artery Qualified Code(s): I63.10 - Cerebral infarction due to embolism of unspecified precerebral artery Subjective Principal diagnosis: CVA Interval history: Patient seen and examined. She came back of VINCENT and is slightly drowsy but she appears more alert than yesterday. her speech is improving too and she could speak few words at one time. Right arm still paralysed and she could wiggle her right toe this AM. VINCENT report is pending. CTA of head and neck showed critical right ICA stenosis, and left MCA M1 branch occlusion. Incidentally noted mediastinal adenopathy with several of the lymph nodes demonstrating CT characteristics concerning for metastatic disease. Also, small spiculated nodule within the right lung apex. Oncology is onboard Objective - Constitutional Vitals: Temp Pulse Resp BP Pulse Ox 98.1 F 71 14 156/79 97 05/13/17 15:21 05/13/17 15:21 05/13/17 15:21 05/13/17 15:21 05/13/17 15:21 - Neurological Exam Motor examination - right side: 1/5: deltoids, biceps, triceps, wrist flexion, wrist extension, confectionery laboratory manager, 3/5: toe extension (EHL), plantarflexion Motor examination - left side: 5/5: deltoids, biceps, triceps, wrist flexion, wrist extension, hip flexors, confectionery laboratory manager, quadriceps, tibialis Anterior, toe extension (EHL), plantarflexion Sensation intact: Present: other (unable to assess due to aphasia) Posture: Present: other Reflex and gait examination: other (Gait not assessed) Mental Status Examination: Present: awake, alert, follows simple commands, expressive aphasia (Patient essentially mute) Cranial nerve examination: Present: PERRL, EOMI (gaze preference to left side, along with head preference to the left side as well), visual childers intact ( Unable to assess), corneal reflexes brisk symmetrically, sensory to face intact , mastication intact, no facial asymmetry is present, no dysarthria (Patient is mute), soft palate elevates bilaterally upon phonation (Uanble to assess), gag reflex intact (Unable to assess), flexes SCM and trapezius muscles symmetrically with full power (Unable to assess) Results - Laboratory Findings CBC and BMP: 05/13/17 00:18 05/13/17 00:18 Abnormal lab findings: Abnormal lab results RBC 3.66 M/mcL (3.82-4.97) L 05/13/17 00:18 Hgb 11.4 g/dL (11.5-15.4) L 05/13/17 00:18 Hct 33.9 % (35.3-44.9) L 05/13/17 00:18 PT 14.0 Seconds (9.4-12.1) H 05/12/17 19:35 APTT 56.0 Seconds (26.0-36.0) H 05/13/17 07:00 Glucose 112 mg/dL (70-99) H 05/13/17 00:18 POC Glucose 108 (58-89) H 05/13/17 11:25 Troponin I 0.12 ng/mL (0-0.03) H* 05/13/17 00:18 LDL Cholesterol, Calc 111 mg/dL (0-99) H 05/13/17 00:18 HDL Cholesterol 35 mg/dL (40-59) L 05/13/17 00:18 Cholesterol/HDL Ratio 5.0 (0-4.9) H 05/13/17 00:18 Consult Discharge Plan - Plan Referrals: Priyanka Torres MD [Primary Care Provider] -
--- NOTE | 2017-05-13 19:04 | Internal Med Progress Note ---
Date of Encounter: 05/13/17 Time of Encounter: 09:35 - Assessment and plan (1) CVA (cerebral vascular accident) Current Visit: Yes Status: Acute Assessment and plan: Patient with new onset right-sided paralysis, aphasia. She was found on the floor by her family after they were notified by [employer] company. CT head shows no acute infarct/bleed. MRI showed acute infarct with additional microinfarcts within the high left frontoparietal lobe and right parieto-occipital lobe. CTA head shows critical stenosis of the proximal right cervial ICA, short segment occlusion of the M1 segment of the left MCA. Patient with embolic stroke involving both hemispheres with coexisting right ICA critical stenosis, left MCA M1 occlusion. TTE without significant pathology. VINCENT with no identifiable intracardiac source for recent CVA. Mild prolapsing of the anterior mitral valve leaflets with trivial mitral regurgitation. There is no PFO noted. 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 Incidentally noted on CT, mediatstinal adennopathy with several lymph nodes concerning for metastatic disease, as well as a 15 mm spiculated nodule within the right upper lobe. Patient has been evaluated by neurology, as well as vascular surgery. Surgical intervention at this time is not indicated, if patient demonstrates significant improvement, potentially an endarterectomy could be discussed in the future. Today during assessment, patient was lying on her left side. Patient was responsive, did try to speak once. After that she did not attempt to answer anymore questions. Family reports that she does not enjoy interacting with staff, but she does interact with them. Right side remained flaccid. Patient also evaluated by speech therapy, she will be on nectar thick liquids. Head CT 05/12/17 06:02 IMPRESSION: No acute intracranial abnormality. Mild chronic small vessel ischemic disease within the periventricular white matter D/ / Joseph Bowen MD / Joseph Bowen MD Interpreting Provider: Joseph Bowen MD Brain MRI 05/12/17 10:11 IMPRESSION: Acute infarct within the left mid strickland radiata extending into the ipsilateral basal ganglia, with additional microinfarcts seen within the high left frontoparietal lobe and right parieto-occipital lobe. Possible partial thrombosis of the left MCA. The findings were sent to the Radiology Results Communication [facility] at 4:47 pm on 05/12/2017to be communicated to a licensed caregiver. D/ / Erwin Dickens MD / Erwin Dickens MD Interpreting Provider: Erwin Dickens MD Echocardiogram 05/12/17 10:39 Impressions: LVEF 60%. Mild left ventricular diastolic dysfunction. Normal right ventricular structure and function. Mild prolapsing of the anterior mitral valve leaflet with mild mitral regurgitation. Mild-moderate tricuspid regurgitation. No pulmonary hypertension. No evidence of PFO with agitated saline contrast. Left Ventricular Wall Motion: Rest Echo Findings All wall segments showed normal motion. Angiography CT 05/12/17 19:08 IMPRESSION: Critical stenosis of the proximal right cervical ICA. Short segment occlusion of the M1 segment of the left MCA. Incidentally noted mediastinal adenopathy with several of the lymph nodes demonstrating CT characteristics concerning for metastatic disease. Also, small spiculated nodule within the right lung apex. Multinodular goiter. The findings were sent to the Radiology Results Communication [facility] at 11:58 pm on 05/12/2017to be communicated to a licensed caregiver. D/ / Erwin Dickens MD / Erwin Dickens MD Interpreting Provider: Erwin Dickens MD Neck CTA 05/12/17 19:08 IMPRESSION: Critical stenosis of the proximal right cervical ICA. Short segment occlusion of the M1 segment of the left MCA. Incidentally noted mediastinal adenopathy with several of the lymph nodes demonstrating CT characteristics concerning for metastatic disease. Also, small spiculated nodule within the right lung apex. Multinodular goiter. The findings were sent to the Radiology Results Communication [facility] at 11:58 pm on 05/12/2017to be communicated to a licensed caregiver. D/ / Erwin Dickens MD / Erwin Dickens MD Interpreting Provider: Erwin Dickens MD Videofluoroscopic Swallow 05/13/17 00:01 IMPRESSION: Rapid aspiration seen with thin liquids. Brief penetration seen with nectar thick liquids, in 1 of 3 administrations. Please see separate speech pathology report for full discussion of findings and recommendations. D/ / Rambo Rolon MD / Rambo Rolon MD Interpreting Provider: Rambo Rolon MD Qualifiers: CVA mechanism: embolism Precerebral and cerebral artery: unspecified precerebral artery Qualified Code(s): I63.10 - Cerebral infarction due to embolism of unspecified precerebral artery (2) Lung nodule Current Visit: Yes Status: Acute Assessment and plan: Incidental finding and neck CT angiogram is a 15 mm spiculated in nodule within right upper lobe, as well as multiple hypoattenuating masses within the thyroid gland, as well as mediastinal lymphadenopathy. Findings are concerning for metastatic disease and oncology was consulted. Oncology noted a palpable node in the left supraclavicular area in case there is a biopsy that is required. Patient will have a CT chest, abdomen, and pelvis. Patient will also have tumor markers drawn. IR will be consulted to consider a CT-guided biopsy of upper thoracic lymphadenopathy. (3) Essential hypertension Current Visit: Yes Status: Chronic Assessment and plan: At this time, blood pressure is well controlled, we encourage permissive hypertension at this time. Continue to monitor vital signs as ordered. (4) Tobacco abuse Current Visit: Yes Status: Chronic Assessment and plan: Patient has a long history of smoking. She is not requiring a nicotine patch at this time. We will continue to reassess. (5) Graves disease Current Visit: Yes Status: Chronic Assessment and plan: Per history. (6) Mediastinal lymphadenopathy Current Visit: Yes Status: Acute Assessment and plan: Per CAT scan. Plan as above. (7) Hematuria Current Visit: Yes Status: Acute Assessment and plan: Patient has been on a heparin drip pending VINCENT results. Patient developed hematuria. Dr. Blanca and I discussed this. Heparin drip has been stopped and UA has been sent. We will continue to monitor. Patient has a Ricardo. We will continue to watch for hematuria. On discharge we will recheck. If patient still has hematuria we will only do aspirin 325 mg. If patient does not have hematuria on discharge, we will add Plavix 75 mg 2 aspirin 81 mg daily. Qualifiers: Hematuria type: unspecified type Qualified Code(s): R31.9 - Hematuria, unspecified - Time Spent With Patient less than 15 minutes - Subjective Interval history: Patient was seen and assessed at 9:35 AM. Family members at bedside. Patient was nonverbal with me. She did not appear to interact with me at all. Family reports that she is interacting with them. Patient still has no use of right side. She has no sensation, either. Discussed oncology consultation, as well as changing CODE STATUS, family will discuss. - Constitutional Vitals: Temp Pulse Resp BP Pulse Ox 98.8 F 74 16 164/77 95 05/13/17 18:39 05/13/17 18:39 05/13/17 18:39 05/13/17 18:39 05/13/17 18:39 General appearance: Present: cooperative, A&O X 1, pleasant, no acute distress. Absent: answers questions appropriately - Head Head exam: Present: atraumatic, normal inspection, normocephalic - Eye Eye exam: Present: normal appearance, conjuntiva pink, sclera anicteric - Neck Neck exam general surgery: Present: normal inspection, supple, trachea midline - Respiratory Respiratory exam: Present: CTAB. Absent: accessory muscle use, decreased breath sounds, rales, respiratory distress, rhonchi, wheezes - Cardiovascular Cardiovascular exam: Present: RRR, +S1, +S2. Absent: diastolic murmur, gallop, rubs, systolic murmur - GI/Abdominal GI/Abdominal exam: Present: normal bowel sounds, soft. Absent: distended, hepatomegaly, tenderness - Extremities Exam Extremities exam: Present: normal capillary refill, warm, radial pulses palpable and symmetrical. Absent: calf tenderness, cyanotic, pedal edema, tenderness - Neurological Exam Neurological exam: Present: alert, motor sensory deficit, pronater drift, facial droop, speech deficit. Absent: reflexes normal, no focal deficits, strengths equal and symetr throughout - Expanded Neurological Exam Neurological exam expanded: Present: expressive aphasia, protecting the airway Speech: Present: expressive aphasia. Absent: receptive aphasia Sensory exam: lower extremity light touch: Abnormal Left, Abnormal Right Neuro motor strength exam: LUE: 0, RUE: 0, LLE: 4, RLE: 4 Coma Scale Eye Opening: Spontaneous Coma Scale Motor Response: Obeys Commands Coma Scale Verbal Response: None Coma Scale Total: 11 - Skin Skin exam: Present: dry, intact, normal color, warm. Absent: rash Internal Medicine: Result - Labs CBC & Chem 7: 05/13/17 00:18 05/13/17 00:18 Labs: Short CBC 05/12/17 05/13/17 Range/Units 19:35 00:18 WBC 8.7 9.8 (4.3-11.1) K/mcL Hgb 11.7 11.4 L (11.5-15.4) g/dL Hct 34.8 L 33.9 L (35.3-44.9) % Plt Count 167 161 (140-400) K/mcL Neutrophils # 7.0 (1.6-8.9) K/mcL BMP 05/13/17 00:18 Sodium 137 Potassium 3.6 Chloride 104 Carbon Dioxide 22 BUN 13 Creatinine 0.70 Glucose 112 H Calcium 8.7 Cardiac Enzymes 05/12/17 05/13/17 Range/Units 17:56 00:18 Troponin I 0.13 H* 0.12 H* (0-0.03) ng/mL - ABG Interpretation ABG results: PT/INR, D-dimer PT 14.0 Seconds (9.4-12.1) H 05/12/17 19:35 - Impressions Impressions Angiography CT 05/12/17 19:08 IMPRESSION: Critical stenosis of the proximal right cervical ICA. Short segment occlusion of the M1 segment of the left MCA. Incidentally noted mediastinal adenopathy with several of the lymph nodes demonstrating CT characteristics concerning for metastatic disease. Also, small spiculated nodule within the right lung apex. Multinodular goiter. The findings were sent to the Radiology Results Communication [facility] at 11:58 pm on 05/12/2017to be communicated to a licensed caregiver. D/ / Erwin Dickens MD / Erwin Dickens MD Interpreting Provider: Erwin Dickens MD Neck CTA 05/12/17 19:08 IMPRESSION: Critical stenosis of the proximal right cervical ICA. Short segment occlusion of the M1 segment of the left MCA. Incidentally noted mediastinal adenopathy with several of the lymph nodes demonstrating CT characteristics concerning for metastatic disease. Also, small spiculated nodule within the right lung apex. Multinodular goiter. The findings were sent to the Radiology Results Communication [facility] at 11:58 pm on 05/12/2017to be communicated to a licensed caregiver. D/ / Erwin Dickens MD / Erwin Dickens MD Interpreting Provider: Erwin Dickens MD Videofluoroscopic Swallow 05/13/17 00:01 IMPRESSION: Rapid aspiration seen with thin liquids. Brief penetration seen with nectar thick liquids, in 1 of 3 administrations. Please see separate speech pathology report for full discussion of findings and recommendations. D/ / Rambo Rolon MD / Rambo Rolon MD Interpreting Provider: Rambo Rolon MD Consult Discharge Plan - Plan Referrals: Priyanka Torres MD [Primary Care Provider] -
[2017-05-13 21:19] LABS: Thyroid Stimulating Hormone 1.531 mcIU/mL (0.350-4.840)
[2017-05-13 22:33] LABS: Bilirubin,Urine Negative (Negative); Blood,Urine Large (Negative); Clarity,Urine Cloudy (Clear); Glucose,Urine (UA) Normal (Normal); Ketones,Urine 15 mg/dL (Negative); Leukocyte Esterase,Urine Small (Negative); Nitrite,Urine Negative (Negative); PH,Urine 6.5 pH Units (5.0-8.0); Protein,Urine 100 mg/dL (Neg-Trace); Specific Gravity,Urine 1.025 (1.010-1.025); Urobilinogen,Urine Normal (Normal)
[2017-05-13 22:35] LABS: Carcinoembryonic Antigen 74.3 ng/mL (0-5.0)
[2017-05-13 22:35] LABS: Bacteria,Urine None Seen per hpf (None-Few); Hyaline Casts,Urine None Seen per lpf (None-Few); RBC,Urine TNTC per hpf (0-3); Squamous Epithelial Cell,Urine Many per lpf (None-Few)
[2017-05-13 22:39] LABS: Color,Urine Amber (Yellow)
[2017-05-14 03:33] LABS: Basophils # 0.1 K/mcL (0.0-0.2); Basophils % 0.6 %; Eosinophils # 0.2 K/mcL (0.0-0.6); Hematocrit 32.9 % (35.3-44.9); Hemoglobin 11.2 g/dL (11.5-15.4); Immature Granulocytes % 0.4 % (0-4); Lymphocytes # 1.8 K/mcL (0.6-4.6); Mean Corpuscular Hemoglobin 30.8 pg (28.0-33.3); Mean Corpuscular Volume 90.4 fL (83.0-100.0); Mean Platelet Volume 10.3 fL (9.4-12.4); Monocytes # 0.6 K/mcL (0.0-1.3); Monocytes % 7.6 %; Neutrophils # 5.2 K/mcL (1.6-8.9); Platelet Count 182 K/mcL (140-400); Red Blood Count 3.64 M/mcL (3.82-4.97); Red Cell Distribution Width 13.4 % (11.5-14.5); Segmented Neutrophils % 65.4 %
[2017-05-14 03:47] LABS: BUN/Creatinine Ratio 15 (6-26); Blood Urea Nitrogen 11 mg/dL (7-20); Calcium 8.7 mg/dL (8.6-10.8); Carbon Dioxide 22 mEq/L (19-29); Chloride 106 mEq/L (98-109); Glucose 96 mg/dL (70-99); Osmolality,Calculated 287 (280-300); Potassium 3.6 mEq/L (3.5-4.5); Sodium 139 mEq/L (136-145); eGFR For African Americans > 60 (> 60); eGFR For Non-African Americans > 60 (> 60)
--- NOTE | 2017-05-14 09:26 | Internal Med Progress Note ---
Date of Encounter: 05/14/17 Time of Encounter: 08:50 - Assessment and plan (1) CVA (cerebral vascular accident) Current Visit: Yes Status: Acute Assessment and plan: Patient with new onset right-sided paralysis, aphasia. She was found on the floor by her family after they were notified by [employer]. CT head shows no acute infarct/bleed. MRI showed acute infarct with additional microinfarcts within the high left frontoparietal lobe and right parieto-occipital lobe. CTA head shows critical stenosis of the proximal right cervial ICA, short segment occlusion of the M1 segment of the left MCA. Patient with embolic stroke involving both hemispheres with coexisting right ICA critical stenosis, left MCA M1 occlusion. TTE without significant pathology. VINCENT with no identifiable intracardiac source for recent CVA. Mild prolapsing of the anterior mitral valve leaflets with trivial mitral regurgitation. There is no PFO noted. 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 Patient has been evaluated by neurology, as well as vascular surgery. Surgical intervention at this time is not indicated, if patient demonstrates significant improvement, potentially an endarterectomy could be discussed in the future. Today during assessment patient was more interactive with me and nodded her head yes or shook her head no in response to questions. Right side remained flaccid. Patient also evaluated by speech therapy, she will be on nectar thick liquids. Head CT 05/12/17 06:02 IMPRESSION: No acute intracranial abnormality. Mild chronic small vessel ischemic disease within the periventricular white matter D/ / Joseph Bowen MD / Joseph Bowen MD Interpreting Provider: Joseph Bowen MD Brain MRI 05/12/17 10:11 IMPRESSION: Acute infarct within the left mid st[place] radiata extending into the ipsilateral basal ganglia, with additional microinfarcts seen within the high left frontoparietal lobe and right parieto-occipital lobe. Possible partial thrombosis of the left MCA. The findings were sent to the Radiology Results Communication Center at 4:47 pm on 05/12/2017to be communicated to a licensed caregiver. D/ / Erwin Dickens MD / Erwin Dickens MD Interpreting Provider: Erwin Dickens MD Echocardiogram 05/12/17 10:39 Impressions: LVEF 60%. Mild left ventricular diastolic dysfunction. Normal right ventricular structure and function. Mild prolapsing of the anterior mitral valve leaflet with mild mitral regurgitation. Mild-moderate tricuspid regurgitation. No pulmonary hypertension. No evidence of PFO with agitated saline contrast. Left Ventricular Wall Motion: Rest Echo Findings All wall segments showed normal motion. Angiography CT 05/12/17 19:08 IMPRESSION: Critical stenosis of the proximal right cervical ICA. Short segment occlusion of the M1 segment of the left MCA. Incidentally noted mediastinal adenopathy with several of the lymph nodes demonstrating CT characteristics concerning for metastatic disease. Also, small spiculated nodule within the right lung apex. Multinodular goiter. The findings were sent to the Radiology Results Communication [facility] at 11:58 pm on 05/12/2017to be communicated to a licensed caregiver. D/ / Erwin Dickens MD / Erwin Dickens MD Interpreting Provider: Erwin Dickens MD Neck CTA 05/12/17 19:08 IMPRESSION: Critical stenosis of the proximal right cervical ICA. Short segment occlusion of the M1 segment of the left MCA. Incidentally noted mediastinal adenopathy with several of the lymph nodes demonstrating CT characteristics concerning for metastatic disease. Also, small spiculated nodule within the right lung apex. Multinodular goiter. The findings were sent to the Radiology Results Communication [facility] at 11:58 pm on 05/12/2017to be communicated to a licensed caregiver. D/ / Erwin Dickens MD / Erwin Dickens MD Interpreting Provider: Erwin Dickens MD Videofluoroscopic Swallow 05/13/17 00:01 IMPRESSION: Rapid aspiration seen with thin liquids. Brief penetration seen with nectar thick liquids, in 1 of 3 administrations. Please see separate speech pathology report for full discussion of findings and recommendations. D/ / Rambo Rolon MD / Rambo Rolon MD Interpreting Provider: Rambo Rolon MD Qualifiers: CVA mechanism: embolism Precerebral and cerebral artery: unspecified precerebral artery Qualified Code(s): I63.10 - Cerebral infarction due to embolism of unspecified precerebral artery (2) Lung nodule Current Visit: Yes Status: Acute Assessment and plan: Incidental finding and neck CT angiogram is a 15 mm spiculated in nodule within right upper lobe, as well as multiple hypoattenuating masses within the thyroid gland, as well as mediastinal lymphadenopathy. Chest CT showed enlarged lymph nodes, right paratracheal lymph node 3.2 x 2.7, subcarinal lymph node 3.9 x 2.6. There is a spiculated mass seen within the right lower lobe measuring 3.7 x 3.3 cm, additional spiculated nodes are seen within the right upper lung, one measuring 1.5 x 1.5 cm, there is a small spiculated nodular lesion in the posterior right upper lobe measuring 5 x 5 mm. There is a small right pleural effusion. No metastatic disease noted within the abdomen on a noncontrast CT. Findings are concerning for metastatic disease and oncology was consulted. Pt will have biopsy of left supraclavicular node today. Multiple cancer marker labs ordered with the direction of oncology, CEA elevated at 74.3, and CA 125 within normal limits. No other labs are back at this time. Angiography CT 05/12/17 19:08 IMPRESSION: Critical stenosis of the proximal right cervical ICA. Short segment occlusion of the M1 segment of the left MCA. Incidentally noted mediastinal adenopathy with several of the lymph nodes demonstrating CT characteristics concerning for metastatic disease. Also, small spiculated nodule within the right lung apex. Multinodular goiter. The findings were sent to the Radiology Results Communication [facility] at 11:58 pm on 05/12/2017to be communicated to a licensed caregiver. D/ / Erwin Dickens MD / Erwin Dickens MD Interpreting Provider: Erwin Dickens MD Chest CT 05/13/17 19:25 IMPRESSION: 1. The abnormality seen on the CTA of the neck are explained by a right lower lobe mass, concerning for primary lung carcinoma. 2. There is evidence of metastatic disease to the right lung, as well as to the mediastinal lymph nodes. 3. Definite metastatic disease within the abdomen pelvis is not identified, but examination is limited without intravenous contrast. D/ / Ivan Fuchs MD / Ivan Fuchs MD Interpreting Provider: Ivan Fuchs MD (3) Essential hypertension Current Visit: Yes Status: Chronic Assessment and plan: At this time, blood pressure is well controlled, we encourage permissive hypertension at this time. Continue to monitor vital signs as ordered. (4) Tobacco abuse Current Visit: Yes Status: Chronic Assessment and plan: Patient has a long history of smoking. She is not requiring a nicotine patch at this time. (5) Graves disease Current Visit: Yes Status: Chronic Assessment and plan: Per history. TSH is within normal limits. (6) Mediastinal lymphadenopathy Current Visit: Yes Status: Acute Assessment and plan: Per CAT scan. Plan as above. (7) Hematuria Current Visit: Yes Status: Acute Assessment and plan: Patient has been on a heparin drip pending VINCENT results. Patient developed hematuria. Dr. Blanca and I discussed this. Heparin drip was stopped and UA sent. We will continue to monitor. Patient has a Ricardo. We will continue to watch for hematuria. On discharge we will recheck. If patient still has hematuria we will only do aspirin 325 mg. If patient does not have hematuria on discharge, we will add Plavix 75 mg 2 aspirin 81 mg daily. UA on 05/13 with large amount of blood, too numerous to count microscopic red cells. A culture was indicated. There is no bacteria present, there is a small amount leukocyte esterase. We will wait for initial culture. Qualifiers: Hematuria type: unspecified type Qualified Code(s): R31.9 - Hematuria, unspecified - Time Spent With Patient less than 15 minutes - Subjective Interval history: Patient was seen and assessed at 0850. No family at bs, therapy in the room, states that pt is doing well. Pt with no independent speech and becomes frustrated when she is unable to communicate her needs or wants. She was repositioned and seemed to do well. Pt denies headache, chest pain, nausea, or abdominal pain. She is aware of procedure today and is agreeable to proceeding. - Constitutional Vitals: Temp Pulse Resp BP Pulse Ox 98.3 F 77 14 178/88 98 05/14/17 07:15 05/14/17 07:15 05/14/17 07:15 05/14/17 07:15 05/14/17 07:15 General appearance: Present: cooperative, pleasant, no acute distress. Absent: answers questions appropriately - Head Head exam: Present: atraumatic, normocephalic - Eye Eye exam: Present: normal appearance, conjuntiva pink, sclera anicteric - Neck Neck exam general surgery: Present: normal inspection, supple, trachea midline - Respiratory Respiratory exam: Present: CTAB. Absent: accessory muscle use, chest wall tenderness, decreased breath sounds, rales, respiratory distress, rhonchi, wheezes - Cardiovascular Cardiovascular exam: Present: RRR, +S1, +S2. Absent: diastolic murmur, gallop, rubs, systolic murmur - GI/Abdominal GI/Abdominal exam: Present: normal bowel sounds, soft. Absent: distended, tenderness - Extremities Exam Extremities exam: Present: warm, radial pulses palpable and symmetrical. Absent : calf tenderness, cyanotic, full ROM, normal inspection, pedal edema, tenderness - Neurological Exam Neurological exam: Present: alert, no focal deficits, pronater drift, facial droop, speech deficit. Absent: reflexes normal, strengths equal and symetr throughout - Skin Skin exam: Present: dry, intact, normal color, warm. Absent: rash Internal Medicine: Result - Labs CBC & Chem 7: 05/14/17 03:24 05/14/17 03:24 Labs: Short CBC 05/14/17 Range/Units 03:24 WBC 7.9 (4.3-11.1) K/mcL Hgb 11.2 L (11.5-15.4) g/dL Hct 32.9 L (35.3-44.9) % Plt Count 182 (140-400) K/mcL Neutrophils # 5.2 (1.6-8.9) K/mcL BMP 05/14/17 03:24 Sodium 139 Potassium 3.6 Chloride 106 Carbon Dioxide 22 BUN 11 Creatinine 0.71 Glucose 96 Calcium 8.7 Urine 05/13/17 Range/Units 22:15 Urine Color Sonal A (Yellow) Urine Clarity Cloudy A (Clear) Urine pH 6.5 (5.0-8.0) pH Units Ur Specific [place] 1.025 (1.010-1.025) Urine Protein 100 H (Neg-Trace) mg/dL Urine Glucose (UA) Normal (Normal) mg/dL - ABG Interpretation ABG results: PT/INR, D-dimer PT 14.0 Seconds (9.4-12.1) H 05/12/17 19:35 - Impressions Impressions Videofluoroscopic Swallow 05/13/17 00:01 IMPRESSION: Rapid aspiration seen with thin liquids. Brief penetration seen with nectar thick liquids, in 1 of 3 administrations. Please see separate speech pathology report for full discussion of findings and recommendations. D/ / Rambo Rolon MD / Rambo Rolon MD Interpreting Provider: Rambo Rolon MD Abdomen/Pelvis CT 05/13/17 19:25 IMPRESSION: 1. The abnormality seen on the CTA of the neck are explained by a right lower lobe mass, concerning for primary lung carcinoma. 2. There is evidence of metastatic disease to the right lung, as well as to the mediastinal lymph nodes. 3. Definite metastatic disease within the abdomen pelvis is not identified, but examination is limited without intravenous contrast. D/ / Ivan Fuchs MD / Ivan Fuchs MD Interpreting Provider: Ivan Fuchs MD Chest CT 05/13/17 19:25 IMPRESSION: 1. The abnormality seen on the CTA of the neck are explained by a right lower lobe mass, concerning for primary lung carcinoma. 2. There is evidence of metastatic disease to the right lung, as well as to the mediastinal lymph nodes. 3. Definite metastatic disease within the abdomen pelvis is not identified, but examination is limited without intravenous contrast. D/ / Ivan Fuchs MD / Ivan Fuchs MD Interpreting Provider: Ivan Fuchs MD Consult Discharge Plan - Plan Referrals: Priyanka Torres MD [Primary Care Provider] -
[2017-05-14] MEDS: Pantoprazole 40 MG VIAL IVP SCH (10:40)
[2017-05-14] MEDS ORDERED: Nicotine 21 MG PATCH.TD24 TD ONE (12:57)
--- NOTE | 2017-05-14 14:39 | Event Note ---
Date of Encounter: 05/14/17 Time of Encounter: 14:38 Due to multiple ongoing issues with patient concerning the recent stroke and new findings of mediastinal lymphadenopathy and right lung mass vascular surgical intervention is unlikely any time in the near future. Therefore I will sign off the case for now. Please contact me if you have any further questions. The patient may be referred back to my clinic as an outpatient once her medical workup has been completed and she is judged to be a reasonable candidate for carotid endarterectomy of the right carotid stenosis.
--- NOTE | 2017-05-14 14:54 | Neurology Progress Note ---
Date of Encounter: 05/14/17 Time of Encounter: 14:49 Assessment and Plan (1) CVA (cerebral vascular accident) Current Visit: Yes Status: Acute Embolic stroke but no definitive source of emboli identified on VINCENT. Patient found to have likely primary lung cancer amid metastatic mediastinal adenopathy. Oncology is on board. Can be associated with hypercoagulable states due to presence of malignancy. Will keep on Aspirin 325mg daily. if urinary bleeding can be cleared then would like to keep her on Plavix 75mg daily and aspirin 81mg daily due to stroke and right ICA critical stenosis. Patient also to follow up with Vascular surgery after discharge. Continue PT and speech therapy. Qualifiers: CVA mechanism: embolism Precerebral and cerebral artery: unspecified precerebral artery Qualified Code(s): I63.10 - Cerebral infarction due to embolism of unspecified precerebral artery Subjective Principal diagnosis: CVA Interval history: Patient seen and examined. She is more alert today but still seems indifferent. She is mostly mute but able to communicate few words earlier. Weakness still the same. Able to withdrawal right foot promptly. Impressions: No identifiable intracardiac source for recent CVA. Mild prolapsing of the anterior mitral valve leaflet with trivial mitral regurgitation. No PFO with saline contrast injection. 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 Patient is Aspirin 325mg dialy. is being evaluated for urinary bleeding. Objective - Constitutional Vitals: Temp Pulse Resp BP Pulse Ox 98.3 F 79 15 118/77 96 05/14/17 10:39 05/14/17 10:39 05/14/17 10:39 05/14/17 10:39 05/14/17 10:39 - Neurological Exam Sensorimotor examination: Present: other (Unable to assess due to aphasia) Motor examination - left side: 5/5: deltoids, biceps, triceps, wrist flexion, wrist extension, hip flexors, nurse first aid, quadriceps, tibialis Anterior, toe extension (EHL), plantarflexion Sensation intact: Present: other (unable to assess due to aphasia) Posture: Present: other Reflex and gait examination: other (Gait not assessed) Mental Status Examination: Present: awake, alert, follows simple commands, expressive aphasia (Patient essentially mute) Cranial nerve examination: Present: PERRL, EOMI (gaze preference to left side, along with head preference to the left side as well), visual childers intact ( Unable to assess), corneal reflexes brisk symmetrically, sensory to face intact , mastication intact, no facial asymmetry is present, no dysarthria (Patient is mute), soft palate elevates bilaterally upon phonation (Uanble to assess), gag reflex intact (Unable to assess), flexes SCM and trapezius muscles symmetrically with full power (Unable to assess) Results - Laboratory Findings CBC and BMP: 05/14/17 03:24 05/14/17 03:24 Abnormal lab findings: Abnormal lab results RBC 3.64 M/mcL (3.82-4.97) L 05/14/17 03:24 Hgb 11.2 g/dL (11.5-15.4) L 05/14/17 03:24 Hct 32.9 % (35.3-44.9) L 05/14/17 03:24 PT 14.0 Seconds (9.4-12.1) H 05/12/17 19:35 APTT 53.6 Seconds (26.0-36.0) H 05/13/17 15:43 POC Glucose 91 (58-89) H 05/14/17 00:12 Troponin I 0.12 ng/mL (0-0.03) H* 05/14/17 12:48 LDL Cholesterol, Calc 111 mg/dL (0-99) H 05/13/17 00:18 HDL Cholesterol 35 mg/dL (40-59) L 05/13/17 00:18 Cholesterol/HDL Ratio 5.0 (0-4.9) H 05/13/17 00:18 Carcinoembryonic Ag 74.3 ng/mL (0-5.0) H 05/13/17 20:10 Urine Color Sonal (Yellow) A 05/13/17 22:15 Urine Clarity Cloudy (Clear) A 05/13/17 22:15 Urine Protein 100 mg/dL (Neg-Trace) H 05/13/17 22:15 Urine Ketones 15 mg/dL (Negative) H 05/13/17 22:15 Urine Blood Large (Negative) H 05/13/17 22:15 Ur Leukocyte Esterase Small (Negative) H 05/13/17 22:15 Urine Microscopic RBC TNTC per hpf (0-3) H 05/13/17 22:15 Urine Microscopic WBC 5-15 per hpf (0-3) H 05/13/17 22:15 Ur Squamous Epith Cells Many per lpf (None-Few) H 05/13/17 22:15 Ur Culture Indicated? YES (NO) A 05/13/17 22:15 Consult Discharge Plan - Plan Referrals: Priyanka Torres MD [Primary Care Provider] -
--- NOTE | 2017-05-14 16:28 | IR Procedure Note ---
Date of procedure: 05/14/17 Consent Obtained: Verbal consent Timeout: Correct patient and procedure verified, Correct site verified, Time out performed, Skin prep completed Local anesthetic: Lidocaine 1% Indications: Mediastinal LAD, chest mass, Left supraclav LAD, nodular thyroid Procedure Performed: U/S guided left supraclavicular LN bx Site/Technique: Left supraclav region Results/Findings: Lesional material. 5 cores with 20g given close arterial structures Estimated blood loss (cc): 1 Complications: None; Tolerated procedure well Post Procedure Treatment Plan: Monitoring in pts room
[2017-05-14] MEDS: 0.9 % Sodium Chloride 1,000 ML IVC SCH (21:30)
[2017-05-15 04:10] LABS: Basophils # 0.1 K/mcL (0.0-0.2); Basophils % 0.7 %; Eosinophils # 0.2 K/mcL (0.0-0.6); Eosinophils % 2.9 %; Hematocrit 31.8 % (35.3-44.9); Hemoglobin 10.8 g/dL (11.5-15.4); Immature Granulocytes % 0.4 % (0-4); Lymphocytes # 1.8 K/mcL (0.6-4.6); Lymphocytes % 25.3 %; Mean Corpuscular Hemoglobin 30.8 pg (28.0-33.3); Mean Corpuscular Volume 90.6 fL (83.0-100.0); Mean Platelet Volume 10.2 fL (9.4-12.4); Monocytes # 0.6 K/mcL (0.0-1.3); Monocytes % 8.3 %; Neutrophils # 4.5 K/mcL (1.6-8.9); Platelet Count 154 K/mcL (140-400); Red Blood Count 3.51 M/mcL (3.82-4.97); Red Cell Distribution Width 13.3 % (11.5-14.5); Segmented Neutrophils % 62.4 %
[2017-05-15 04:21] LABS: BUN/Creatinine Ratio 21 (6-26); Blood Urea Nitrogen 13 mg/dL (7-20); Calcium 8.4 mg/dL (8.6-10.8); Carbon Dioxide 23 mEq/L (19-29); Chloride 105 mEq/L (98-109); Glucose 108 mg/dL (70-99); Osmolality,Calculated 285 (280-300); Potassium 3.4 mEq/L (3.5-4.5); Sodium 137 mEq/L (136-145); eGFR For African Americans > 60 (> 60); eGFR For Non-African Americans > 60 (> 60)
[2017-05-15] MEDS: 0.9 % Sodium Chloride 1,000 ML IVC SCH ×3 (07:54→14:40)
[2017-05-15] MEDS: Pantoprazole 40 MG VIAL IVP SCH (08:00)
[2017-05-15] MEDS ORDERED: Potassium Chloride Elixir 20 MEQ/15 ML UDC PO SCH (09:45)
--- NOTE | 2017-05-15 10:52 | Internal Med Progress Note ---
Date of Encounter: 05/15/17 Time of Encounter: 10:40 - Assessment and plan (1) CVA (cerebral vascular accident) Current Visit: Yes Status: Acute Assessment and plan: Patient with new onset right-sided paralysis, aphasia. She was found on the floor by her family after they were notified by alarm company. CT head shows no acute infarct/bleed. MRI showed acute infarct with additional microinfarcts within the high left frontoparietal lobe and right parieto-occipital lobe. CTA head shows critical stenosis of the proximal right cervial ICA, short segment occlusion of the M1 segment of the left MCA. Patient with embolic stroke involving both hemispheres with coexisting right ICA critical stenosis, left MCA M1 occlusion. TTE without significant pathology. VINCENT with no identifiable intracardiac source for recent CVA. Mild prolapsing of the anterior mitral valve leaflets with trivial mitral regurgitation. There is no PFO noted. 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 Patient has been evaluated by neurology, as well as vascular surgery. Surgical intervention at this time is not indicated, if patient demonstrates significant improvement, potentially an endarterectomy could be discussed in the future. Today during assessment patient was more interactive with me and nodded her head yes or shook her head no in response to questions. Right side remained flaccid. Patient also evaluated by speech therapy, she will be on nectar thick liquids. Right hemiplegia remains, but she is able to speak, although it is slurred and difficult to understand. Head CT 05/12/17 06:02 IMPRESSION: No acute intracranial abnormality. Mild chronic small vessel ischemic disease within the periventricular white matter D/ / Joseph Bowen MD / Joseph Bowen MD Interpreting Provider: Joseph Bowen MD Brain MRI 05/12/17 10:11 IMPRESSION: Acute infarct within the left mid strickland radiata extending into the ipsilateral basal ganglia, with additional microinfarcts seen within the high left frontoparietal lobe and right parieto-occipital lobe. Possible partial thrombosis of the left MCA. The findings were sent to the Radiology Results Communication Center at 4:47 pm on 05/12/2017to be communicated to a licensed caregiver. D/ / Erwin Dickens MD / Erwin Dickens MD Interpreting Provider: Erwin Dickens MD Echocardiogram 05/12/17 10:39 Impressions: LVEF 60%. Mild left ventricular diastolic dysfunction. Normal right ventricular structure and function. Mild prolapsing of the anterior mitral valve leaflet with mild mitral regurgitation. Mild-moderate tricuspid regurgitation. No pulmonary hypertension. No evidence of PFO with agitated saline contrast. Left Ventricular Wall Motion: Rest Echo Findings All wall segments showed normal motion. Angiography CT 05/12/17 19:08 IMPRESSION: Critical stenosis of the proximal right cervical ICA. Short segment occlusion of the M1 segment of the left MCA. Incidentally noted mediastinal adenopathy with several of the lymph nodes demonstrating CT characteristics concerning for metastatic disease. Also, small spiculated nodule within the right lung apex. Multinodular goiter. The findings were sent to the Radiology Results Communication Center at 11:58 pm on 05/12/2017to be communicated to a licensed caregiver. D/ / Erwin Dickens MD / Erwin Dickens MD Interpreting Provider: Erwin Dickens MD Neck CTA 05/12/17 19:08 IMPRESSION: Critical stenosis of the proximal right cervical ICA. Short segment occlusion of the M1 segment of the left MCA. Incidentally noted mediastinal adenopathy with several of the lymph nodes demonstrating CT characteristics concerning for metastatic disease. Also, small spiculated nodule within the right lung apex. Multinodular goiter. The findings were sent to the Radiology Results Communication Center at 11:58 pm on 05/12/2017to be communicated to a licensed caregiver. D/ / Erwin Dickens MD / Erwin Dickens MD Interpreting Provider: Erwin Dickens MD Videofluoroscopic Swallow 05/13/17 00:01 IMPRESSION: Rapid aspiration seen with thin liquids. Brief penetration seen with nectar thick liquids, in 1 of 3 administrations. Please see separate speech pathology report for full discussion of findings and recommendations. D/ / Rambo Rolon MD / Rambo Rolon MD Interpreting Provider: Rambo Rolon MD Qualifiers: CVA mechanism: embolism Precerebral and cerebral artery: unspecified precerebral artery Qualified Code(s): I63.10 - Cerebral infarction due to embolism of unspecified precerebral artery (2) Lung nodule Current Visit: Yes Status: Acute Assessment and plan: Incidental finding and neck CT angiogram is a 15 mm spiculated in nodule within right upper lobe, as well as multiple hypoattenuating masses within the thyroid gland, as well as mediastinal lymphadenopathy. Chest CT showed enlarged lymph nodes, right paratracheal lymph node 3.2 x 2.7, subcarinal lymph node 3.9 x 2.6. There is a spiculated mass seen within the right lower lobe measuring 3.7 x 3.3 cm, additional spiculated nodes are seen within the right upper lung, one measuring 1.5 x 1.5 cm, there is a small spiculated nodular lesion in the posterior right upper lobe measuring 5 x 5 mm. There is a small right pleural effusion. No metastatic disease noted within the abdomen on a noncontrast CT. Findings are concerning for metastatic disease and oncology was consulted. Pt had biopsy of node yesterday, results pending. Multiple cancer marker labs ordered with the direction of oncology, CEA elevated at 74.3, and CA 125 within normal limits. Other labs pending. Angiography CT 05/12/17 19:08 IMPRESSION: Critical stenosis of the proximal right cervical ICA. Short segment occlusion of the M1 segment of the left MCA. Incidentally noted mediastinal adenopathy with several of the lymph nodes demonstrating CT characteristics concerning for metastatic disease. Also, small spiculated nodule within the right lung apex. Multinodular goiter. The findings were sent to the Radiology Results Communication Center at 11:58 pm on 05/12/2017to be communicated to a licensed caregiver. D/ / Erwin Dickens MD / Erwin Dickens MD Interpreting Provider: Erwin Dickens MD Chest CT 05/13/17 19:25 IMPRESSION: 1. The abnormality seen on the CTA of the neck are explained by a right lower lobe mass, concerning for primary lung carcinoma. 2. There is evidence of metastatic disease to the right lung, as well as to the mediastinal lymph nodes. 3. Definite metastatic disease within the abdomen pelvis is not identified, but examination is limited without intravenous contrast. D/ / Ivan Fuchs MD / Ivan Fuchs MD Interpreting Provider: Ivan Fuchs MD (3) Essential hypertension Current Visit: Yes Status: Chronic Assessment and plan: At this time, blood pressure is well controlled, we encourage permissive hypertension at this time. Continue to monitor vital signs as ordered. (4) Tobacco abuse Current Visit: Yes Status: Chronic Assessment and plan: Patient has a long history of smoking. Nicotine patch ordered. (5) Graves disease Current Visit: Yes Status: Chronic Assessment and plan: Per history. TSH is within normal limits. (6) Mediastinal lymphadenopathy Current Visit: Yes Status: Acute Assessment and plan: Per CAT scan. Plan as above. (7) Hematuria Current Visit: Yes Status: Acute Assessment and plan: Patient was on heparin gtt. Patient developed hematuria. Dr. Blanca and I discussed the hematria, heparin drip was stopped and UA sent. We will continue to monitor. Patient has a Ricardo. We will continue to watch for hematuria. On discharge we will recheck. If patient still has hematuria we will only do aspirin 325 mg. If patient does not have hematuria on discharge, we will add Plavix 75 mg 2 aspirin 81 mg daily. UA on 05/13 with large amount of blood, too numerous to count microscopic red cells. A culture was indicated. There is no bacteria present, there is a small amount leukocyte esterase. Urine culture negative. Qualifiers: Hematuria type: unspecified type Qualified Code(s): R31.9 - Hematuria, unspecified (8) Elevated troponin Current Visit: Yes Status: Acute Assessment and plan: Most likely due to demand ischemia, reactive. Has remained stable, adynamic. Will continue to monitor and watch for increase. I discussed this with cardiology CLINICAL CYTOGENETICS DIRECTOR who states that pt is not stable enough for LHC or stress, but to consult them if needed. Pt denies chest pain. Monitor remains NSR. (9) Dysarthria Current Visit: Yes Status: Acute Assessment and plan: Pt has recovered some speech. Speech is slurred, but has improved. Continue therapy. 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 Pt is receiving PT and OT. Planned discharge to [place] for rehab. - Time Spent With Patient less than 15 minutes - Subjective Interval history: Patient was seen and assessed at 1040. No family at bs, therapy in the room, states that pt is doing well. Pt with R hemiplegia, but speech is returning. She has some independent speech, slurred. Pt denies headache, chest pain, nausea, or abdominal pain. - Constitutional Vitals: Temp Pulse Resp BP Pulse Ox 97.7 F 72 16 178/83 94 05/15/17 07:09 05/15/17 07:09 05/15/17 07:09 05/15/17 07:09 05/15/17 07:09 General appearance: Present: cooperative, pleasant, no acute distress, answers questions appropriately - Head Head exam: Present: atraumatic, normal inspection, normocephalic - Eye Eye exam: Present: normal appearance, conjuntiva pink, sclera anicteric - Neck Neck exam general surgery: Present: supple, trachea midline - Respiratory Respiratory exam: Present: CTAB. Absent: accessory muscle use, chest wall tenderness, decreased breath sounds, rales, respiratory distress, rhonchi, wheezes - Cardiovascular Cardiovascular exam: Present: RRR, +S1, +S2. Absent: diastolic murmur, gallop, rubs, systolic murmur - GI/Abdominal GI/Abdominal exam: Present: normal bowel sounds, soft, no peritoneal signs. Absent: distended, hepatomegaly, tenderness - Extremities Exam Extremities exam: Present: normal inspection, warm, radial pulses palpable and symmetrical. Absent: calf tenderness, cyanotic, joint swelling, pedal edema, tenderness - Neurological Exam Neurological exam: Present: alert. Absent: no focal deficits, strengths equal and symetr throughout, facial droop, speech deficit - Skin Skin exam: Present: dry, intact, normal color, warm. Absent: rash Internal Medicine: Result - Labs CBC & Chem 7: 05/15/17 03:49 05/15/17 03:49 Labs: Short CBC 05/15/17 Range/Units 03:49 WBC 7.2 (4.3-11.1) K/mcL Hgb 10.8 L (11.5-15.4) g/dL Hct 31.8 L (35.3-44.9) % Plt Count 154 (140-400) K/mcL Neutrophils # 4.5 (1.6-8.9) K/mcL BMP 05/15/17 03:49 Sodium 137 Potassium 3.4 L Chloride 105 Carbon Dioxide 23 BUN 13 Creatinine 0.62 Glucose 108 H Calcium 8.4 L Cardiac Enzymes 05/14/17 Range/Units 12:48 Troponin I 0.12 H* (0-0.03) ng/mL - ABG Interpretation ABG results: PT/INR, D-dimer PT 14.0 Seconds (9.4-12.1) H 05/12/17 19:35 - Impressions Impressions Guidance Needle Placement Ultrasound 05/14/17 00:00 IMPRESSION: Successful left supraclavicular lymph node biopsy as above. Lesional material obtained. Pathology pending. D/ / Rambo Rolon MD / Rambo Rolon MD Interpreting Provider: Rambo Rolon MD Consult Discharge Plan - Plan Referrals: Priyanka Torres MD [Primary Care Provider] -
[2017-05-15 14:03] LABS: Bilirubin,Urine Small (Negative); Blood,Urine Moderate (Negative); Clarity,Urine Cloudy (Clear); Color,Urine Yellow (Yellow); Glucose,Urine (UA) Normal (Normal); Ketones,Urine Negative (Negative); Leukocyte Esterase,Urine Negative (Negative); Nitrite,Urine Negative (Negative); Protein,Urine 100 mg/dL (Neg-Trace); Specific Gravity,Urine 1.027 (1.010-1.025); Urobilinogen,Urine Normal (Normal)
[2017-05-15] MEDS: Nicotine 14 MG PATCH.TD24 TD SCH (14:38)
[2017-05-16 05:51] LABS: Basophils # 0.1 K/mcL (0.0-0.2); Basophils % 0.6 %; Eosinophils # 0.3 K/mcL (0.0-0.6); Eosinophils % 3.3 %; Hematocrit 30.6 % (35.3-44.9); Hemoglobin 10.4 g/dL (11.5-15.4); Immature Granulocytes % 0.2 % (0-4); Lymphocytes # 1.9 K/mcL (0.6-4.6); Lymphocytes % 23.9 %; Mean Corpuscular Hemoglobin 30.9 pg (28.0-33.3); Mean Corpuscular Volume 90.8 fL (83.0-100.0); Mean Platelet Volume 10.9 fL (9.4-12.4); Monocytes # 0.7 K/mcL (0.0-1.3); Monocytes % 8.3 %; Neutrophils # 5.2 K/mcL (1.6-8.9); Platelet Count 143 K/mcL (140-400); Red Blood Count 3.37 M/mcL (3.82-4.97); Red Cell Distribution Width 13.6 % (11.5-14.5); Segmented Neutrophils % 63.7 %
[2017-05-16 05:57] LABS: BUN/Creatinine Ratio 17 (6-26); Blood Urea Nitrogen 10 mg/dL (7-20); Calcium 8.4 mg/dL (8.6-10.8); Carbon Dioxide 24 mEq/L (19-29); Chloride 108 mEq/L (98-109); Glucose 110 mg/dL (70-99); Magnesium 1.8 mg/dL (1.6-2.6); Osmolality,Calculated 290 (280-300); Potassium 3.4 mEq/L (3.5-4.5); Sodium 140 mEq/L (136-145); eGFR For African Americans > 60 (> 60); eGFR For Non-African Americans > 60 (> 60)
[2017-05-16] MEDS ORDERED: Potassium Chloride Elixir 20 MEQ/15 ML UDC GTUBE SCH (09:00)
[2017-05-16 09:09] LABS: % Iron Saturation 15 % (15-50); Iron 43 mcg/dL (50-170); Transferrin 208 mg/dL (180-382)
[2017-05-16] MEDS: METHIMAZOLE 10 MG PO SCH (09:21)
[2017-05-16] MEDS: Aspirin 325 MG TABLET PO SCH (09:34)
[2017-05-16] MEDS: Nicotine 14 MG PATCH.TD24 TD SCH (09:34)
[2017-05-16] MEDS: Pantoprazole 40 MG VIAL IVP SCH (09:34)
[2017-05-16] MEDS: Potassium Chloride Elixir 20 MEQ/15 ML UDC PO SCH ×2 (09:34→21:33)
[2017-05-16 09:45] LABS: Folate 15.4 ng/mL (7.0-31.4)
--- NOTE | 2017-05-16 10:36 | Oncology Inp Progress Note ---
Date of Encounter: 05/16/17 Time of Encounter: 10:30 (1) Mediastinal lymphadenopathy Current Visit: Yes Status: Acute Assessment and plan: - Pathology results still in process ( from IR supra clavicular biopsy). Patient informed. She remains alert, now able to vocalize "no", but remains deeply aphasic. - CA 125 and LDH within normal limits. Other tumor markers still pending ( CA19, 9 , CA27-29; AFP, CEA, thyroglobuline) (2) CVA (cerebral vascular accident) Current Visit: Yes Status: Acute Assessment and plan: - Remains aphasic, although now to say " no". follows commands. Neurology and vascular on board. Qualifiers: CVA mechanism: embolism Precerebral and cerebral artery: unspecified precerebral artery Qualified Code(s): I63.10 - Cerebral infarction due to embolism of unspecified precerebral artery Oncology: Subj Interval history: Denies pain. Follows commands. Able to answer yes/no questions and articulate no. - Constitutional Vitals: Vital Signs Temp Pulse Resp BP Pulse Ox 05/16/17 07:13 98.5 F 86 16 193/91 93 05/16/17 03:28 99.4 F 75 16 171/79 94 05/15/17 23:21 99.4 F 85 16 175/82 95 05/15/17 19:43 99.8 F H 75 16 172/85 94 05/15/17 15:12 98.7 F 88 18 177/78 93 05/15/17 10:58 98.7 F 78 16 145/77 92 Intake and Output 05/15/17 05/16/17 05/16/17 23:59 07:59 15:59 Output Total 750 / 750 800 / 800 Balance -750 / -750 -800 / -800 Output: Catheter 750 / 750 800 / 800 Other: Weight 54.613 kg Patient Weight 05/16/17 23:59 Weight 54.613 kg - Head Head exam: Present: normal inspection - Eye Eye exam: Present: EOMI - Neck Neck exam: Absent: tenderness - Respiratory Respiratory exam: Present: CTAB - Cardiovascular Cardiovascular exam: Present: RRR - GI/Abdominal GI/Abdominal exam: Present: normal bowel sounds. Absent: organomegaly - Neurological Exam Neurological exam: Present: alert, speech deficit Oncology: Obj Data - Labs CBC & Chem 7: 05/16/17 05:05 05/16/17 05:05 Labs: Laboratory Results - last 24 hr 05/15/17 05/16/17 05/16/17 13:53 05:05 05:05 WBC 8.1 RBC 3.37 L Hgb 10.4 L Hct 30.6 L MCV 90.8 MCH 30.9 MCHC 34.0 RDW 13.6 Plt Count 143 MPV 10.9 Immature Gran % 0.2 Seg Neutrophils % 63.7 Lymphocytes % 23.9 Monocytes % 8.3 Eosinophils % 3.3 Basophils % 0.6 Neutrophils # 5.2 Lymphocytes # 1.9 Monocytes # 0.7 Eosinophils # 0.3 Basophils # 0.1 Sodium 140 Potassium 3.4 L Chloride 108 Carbon Dioxide 24 BUN 10 Creatinine 0.58 Est GFR ( Amer) > 60 Est GFR (Non-Af Amer) > 60 BUN/Creatinine Ratio 17 Glucose 110 H Calculated Osmolality 290 Calcium 8.4 L Magnesium 1.8 Iron % Saturation Transferrin Vitamin B12 Folate Urine Color Yellow Urine Clarity Cloudy A Urine pH 6.0 Ur Specific [place] 1.027 H Urine Protein 100 H Urine Glucose (UA) Normal Urine Ketones Negative Urine Blood Moderate H Urine Nitrite Negative Urine Bilirubin Small H Urine Urobilinogen Normal Ur Leukocyte Esterase Negative 05/16/17 05/16/17 08:26 08:26 WBC RBC Hgb Hct MCV MCH MCHC RDW Plt Count MPV Immature Gran % Seg Neutrophils % Lymphocytes % Monocytes % Eosinophils % Basophils % Neutrophils # Lymphocytes # Monocytes # Eosinophils # Basophils # Sodium Potassium Chloride Carbon Dioxide BUN Creatinine Est GFR ( Amer) Est GFR (Non-Af Amer) BUN/Creatinine Ratio Glucose Calculated Osmolality Calcium Magnesium Iron 43 L % Saturation 15 Transferrin 208 Vitamin B12 853 H Folate 15.4 Urine Color Urine Clarity Urine pH Ur Specific [place] Urine Protein Urine Glucose (UA) Urine Ketones Urine Blood Urine Nitrite Urine Bilirubin Urine Urobilinogen Ur Leukocyte Esterase - ABG Interpretation ABG results: PT/INR, D-dimer PT 14.0 Seconds (9.4-12.1) H 05/12/17 19:35 Consult Discharge Plan - Plan Referrals: Priyanka Torres MD [Primary Care Provider] -
--- NOTE | 2017-05-16 13:20 | Internal Med Progress Note ---
Date of Encounter: 05/16/17 Time of Encounter: 09:30 - Assessment and plan (1) CVA (cerebral vascular accident) Current Visit: Yes Status: Acute Assessment and plan: Patient with new onset right-sided paralysis, aphasia. She was found on the floor by her family after they were notified by alarm company. CT head shows no acute infarct/bleed. MRI showed acute infarct with additional microinfarcts within the high left frontoparietal lobe and right parieto-occipital lobe. CTA head shows critical stenosis of the proximal right cervial ICA, short segment occlusion of the M1 segment of the left MCA. Patient with embolic stroke involving both hemispheres with coexisting right ICA critical stenosis, left MCA M1 occlusion. TTE without significant pathology. VINCENT with no identifiable intracardiac source for recent CVA. Mild prolapsing of the anterior mitral valve leaflets with trivial mitral regurgitation. There is no PFO noted. 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 Patient has been evaluated by neurology, as well as vascular surgery. Surgical intervention at this time is not indicated, if patient demonstrates significant improvement, potentially an endarterectomy could be discussed in the future. Today during assessment patient was more interactive with me and nodded her head yes or shook her head no in response to questions. Right side remained flaccid. Patient also evaluated by speech therapy, she will be on nectar thick liquids. Right hemiplegia remains, but she is able to speak, although it is slurred and difficult to understand. She is able to feed herself her breakfast. Head CT 05/12/17 06:02 IMPRESSION: No acute intracranial abnormality. Mild chronic small vessel ischemic disease within the periventricular white matter D/ / Joseph Bowen MD / Joseph Bowen MD Interpreting Provider: Joseph Bowen MD Brain MRI 05/12/17 10:11 IMPRESSION: Acute infarct within the left mid strickland radiata extending into the ipsilateral basal ganglia, with additional microinfarcts seen within the high left frontoparietal lobe and right parieto-occipital lobe. Possible partial thrombosis of the left MCA. The findings were sent to the [facility] at 4:47 pm on 05/12/2017to be communicated to a licensed caregiver. D/ / Erwin Dickens MD / Erwin Dickens MD Interpreting Provider: Erwin Dickens MD Echocardiogram 05/12/17 10:39 Impressions: LVEF 60%. Mild left ventricular diastolic dysfunction. Normal right ventricular structure and function. Mild prolapsing of the anterior mitral valve leaflet with mild mitral regurgitation. Mild-moderate tricuspid regurgitation. No pulmonary hypertension. No evidence of PFO with agitated saline contrast. Left Ventricular Wall Motion: Rest Echo Findings All wall segments showed normal motion. Angiography CT 05/12/17 19:08 IMPRESSION: Critical stenosis of the proximal right cervical ICA. Short segment occlusion of the M1 segment of the left MCA. Incidentally noted mediastinal adenopathy with several of the lymph nodes demonstrating CT characteristics concerning for metastatic disease. Also, small spiculated nodule within the right lung apex. Multinodular goiter. The findings were sent to the Radiology Results Communication [facility] at 11:58 pm on 05/12/2017to be communicated to a licensed caregiver. D/ / Erwin Dickens MD / Erwin Dickens MD Interpreting Provider: Erwin Dickens MD Neck CTA 05/12/17 19:08 IMPRESSION: Critical stenosis of the proximal right cervical ICA. Short segment occlusion of the M1 segment of the left MCA. Incidentally noted mediastinal adenopathy with several of the lymph nodes demonstrating CT characteristics concerning for metastatic disease. Also, small spiculated nodule within the right lung apex. Multinodular goiter. The findings were sent to the Radiology Results Communication [facility] at 11:58 pm on 05/12/2017to be communicated to a licensed caregiver. D/ / Erwin Dickens MD / Erwin Dickens MD Interpreting Provider: Erwin Dickens MD Videofluoroscopic Swallow 05/13/17 00:01 IMPRESSION: Rapid aspiration seen with thin liquids. Brief penetration seen with nectar thick liquids, in 1 of 3 administrations. Please see separate speech pathology report for full discussion of findings and recommendations. D/ / Rambo Rolon MD / Rambo Rolon MD Interpreting Provider: Rambo Rolon MD Qualifiers: CVA mechanism: embolism Precerebral and cerebral artery: unspecified precerebral artery Qualified Code(s): I63.10 - Cerebral infarction due to embolism of unspecified precerebral artery (2) Lung nodule Current Visit: Yes Status: Acute Assessment and plan: Incidental finding and neck CT angiogram is a 15 mm spiculated in nodule within right upper lobe, as well as multiple hypoattenuating masses within the thyroid gland, as well as mediastinal lymphadenopathy. Chest CT showed enlarged lymph nodes, right paratracheal lymph node 3.2 x 2.7, subcarinal lymph node 3.9 x 2.6. There is a spiculated mass seen within the right lower lobe measuring 3.7 x 3.3 cm, additional spiculated nodes are seen within the right upper lung, one measuring 1.5 x 1.5 cm, there is a small spiculated nodular lesion in the posterior right upper lobe measuring 5 x 5 mm. There is a small right pleural effusion. No metastatic disease noted within the abdomen on a noncontrast CT. Findings are concerning for metastatic disease and oncology was consulted. Pt had biopsy of node yesterday, results pending. Multiple cancer marker labs ordered with the direction of oncology, CEA elevated at 74.3, and CA 125 within normal limits. Other labs still pending. She was reevaluated by oncology today, results still pending from bx, labs still outstanding. Angiography CT 05/12/17 19:08 IMPRESSION: Critical stenosis of the proximal right cervical ICA. Short segment occlusion of the M1 segment of the left MCA. Incidentally noted mediastinal adenopathy with several of the lymph nodes demonstrating CT characteristics concerning for metastatic disease. Also, small spiculated nodule within the right lung apex. Multinodular goiter. The findings were sent to the Radiology Results Communication [facility] at 11:58 pm on 05/12/2017to be communicated to a licensed caregiver. D/ / Erwin Dickens MD / Erwin Dickens MD Interpreting Provider: Erwin Dickens MD Chest CT 05/13/17 19:25 IMPRESSION: 1. The abnormality seen on the CTA of the neck are explained by a right lower lobe mass, concerning for primary lung carcinoma. 2. There is evidence of metastatic disease to the right lung, as well as to the mediastinal lymph nodes. 3. Definite metastatic disease within the abdomen pelvis is not identified, but examination is limited without intravenous contrast. D/ / Ivan Fuchs MD / Ivan Fuchs MD Interpreting Provider: Ivan Fuchs MD (3) Essential hypertension Current Visit: Yes Status: Chronic Assessment and plan: Pt was hypertensive above baseline today, restarted home BP med. BP returned to baseline. Continue to monitor vital signs as ordered. (4) Tobacco abuse Current Visit: Yes Status: Chronic Assessment and plan: Patient has a long history of smoking. Nicotine patch ordered. (5) Graves disease Current Visit: Yes Status: Chronic Assessment and plan: Per history. TSH is within normal limits. Home medication started today. (6) Mediastinal lymphadenopathy Current Visit: Yes Status: Acute Assessment and plan: Per CAT scan. Plan as above. Pt was seen by oncology again today. They are following along, I appreciate their recommendations and consultation. (7) Hematuria Current Visit: Yes Status: Acute Assessment and plan: Patient was on heparin gtt. Patient developed hematuria. Dr. Blanca and I discussed the hematria, heparin drip was stopped and UA sent. We will continue to monitor. Patient has a Ricardo. We will continue to watch for hematuria. On discharge we will recheck. If patient still has hematuria we will only do aspirin 325 mg. If patient does not have hematuria on discharge, we will add Plavix 75 mg 2 aspirin 81 mg daily. UA on 05/13 with large amount of blood, too numerous to count microscopic red cells. A culture was indicated. There is no bacteria present, there is a small amount leukocyte esterase. Urine culture negative. Repeated UA only on 05/15, Moderate amount of blood, hgb steady, although declining. Labs ordered for anemia. Continue to assess for hematuria. Qualifiers: Hematuria type: unspecified type Qualified Code(s): R31.9 - Hematuria, unspecified (8) Elevated troponin Current Visit: Yes Status: Acute Assessment and plan: Most likely due to demand ischemia, reactive. Has remained stable, adynamic. Will continue to monitor and watch for increase. I discussed this with cardiology MEDICAL FIELD REPRESENTATIVE who states that pt is not stable enough for LHC or stress, but to consult them if needed. Pt denies chest pain. Monitor remains NSR. (9) Dysarthria Current Visit: Yes Status: Acute Assessment and plan: Pt has recovered some speech, is able to speak in broken sentences, still difficult to understand at times. Speech is slurred, but has improved. Continue therapy. 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 Pt is receiving PT and OT. Planned discharge to [facility] for rehab. Pt and family aware, questions answered - Time Spent With Patient less than 15 minutes - Subjective Interval history: Patient was seen and assessed at 0930. Pt was feeding herself her breakfast. Pt with R hemiplegia, but speech is returning. She has some independent speech, still remains slurred. Pt denies headache, chest pain, nausea, or abdominal pain. Denies vision changes or dizziness/lightheadeded. We discussed her plan of care and she nodded in agreement. - Constitutional Vitals: Temp Pulse Resp BP Pulse Ox 98.5 F 70 16 152/90 95 05/16/17 11:55 05/16/17 11:55 05/16/17 11:55 05/16/17 11:55 05/16/17 11:55 General appearance: Present: cooperative, pleasant, no acute distress, answers questions appropriately - Head Head exam: Present: atraumatic, normal inspection, normocephalic - Eye Eye exam: Present: normal appearance, conjuntiva pink, sclera anicteric - Neck Neck exam general surgery: Present: supple, trachea midline. Absent: lymphadenopathy, tenderness - Respiratory Respiratory exam: Present: CTAB. Absent: accessory muscle use, chest wall tenderness, rales, respiratory distress, rhonchi, wheezes - Cardiovascular Cardiovascular exam: Present: RRR, +S1, +S2. Absent: diastolic murmur, gallop, rubs, systolic murmur - GI/Abdominal GI/Abdominal exam: Present: normal bowel sounds, soft, no peritoneal signs. Absent: distended, hepatomegaly, tenderness - Extremities Exam Extremities exam: Present: normal capillary refill, normal inspection, warm, radial pulses palpable and symmetrical. Absent: calf tenderness, cyanotic, pedal edema, tenderness - Neurological Exam Neurological exam: Present: alert, motor sensory deficit, oriented X3, no focal deficits, facial droop, speech deficit. Absent: strengths equal and symetr throughout - Skin Skin exam: Present: dry, intact, normal color, warm. Absent: rash Internal Medicine: Result - Labs CBC & Chem 7: 05/16/17 05:05 05/16/17 05:05 Labs: Short CBC 05/16/17 Range/Units 05:05 WBC 8.1 (4.3-11.1) K/mcL Hgb 10.4 L (11.5-15.4) g/dL Hct 30.6 L (35.3-44.9) % Plt Count 143 (140-400) K/mcL Neutrophils # 5.2 (1.6-8.9) K/mcL BMP 05/16/17 05:05 Sodium 140 Potassium 3.4 L Chloride 108 Carbon Dioxide 24 BUN 10 Creatinine 0.58 Glucose 110 H Calcium 8.4 L Urine 05/15/17 Range/Units 13:53 Urine Color Yellow (Yellow) Urine Clarity Cloudy A (Clear) Urine pH 6.0 (5.0-8.0) pH Units Ur Specific [place] 1.027 H (1.010-1.025) Urine Protein 100 H (Neg-Trace) mg/dL Urine Glucose (UA) Normal (Normal) mg/dL - ABG Interpretation ABG results: PT/INR, D-dimer PT 14.0 Seconds (9.4-12.1) H 05/12/17 19:35 Consult Discharge Plan - Plan Referrals: Priyanka Torres MD [Primary Care Provider] -
[2017-05-16] MEDS: 0.9 % Sodium Chloride 1,000 ML IVC SCH ×2 (16:05→21:40)
[2017-05-17] MEDS: Nicotine 14 MG PATCH.TD24 TD SCH (08:12)
[2017-05-17] MEDS: Aspirin 325 MG TABLET PO SCH (08:13)
[2017-05-17] MEDS: Pantoprazole 40 MG VIAL IVP SCH (08:13)
[2017-05-17] MEDS: Potassium Chloride Elixir 20 MEQ/15 ML UDC PO SCH (08:13)
[2017-05-17] MEDS: METHIMAZOLE 10 MG PO SCH (08:13)
[2017-05-17 08:54] LABS: Cancer Antigen-GI (CA 19-9) 12 U/mL (0-37)
[2017-05-17 08:55] LABS: AFP Tumor Marker Non-Pregnant 5 ng/mL (0-9); Cancer Antigen 27.29 93.4 U/mL (0.0-40.0); Thyroglobulin Antibody <0.9 IU/mL (0.0-4.0); Thyroglobulin, Serum or Plasma 270.2 ng/mL (1.3-31.8)
--- NOTE | 2017-05-17 15:44 | Internal Med Progress Note ---
Date of Encounter: 05/17/17 Time of Encounter: 11:00 - Assessment and plan (1) CVA (cerebral vascular accident) Current Visit: Yes Status: Acute Qualifiers: CVA mechanism: embolism Precerebral and cerebral artery: unspecified precerebral artery Qualified Code(s): I63.10 - Cerebral infarction due to embolism of unspecified precerebral artery (2) Lung nodule Current Visit: Yes Status: Acute (3) Essential hypertension Current Visit: Yes Status: Chronic (4) Tobacco abuse Current Visit: Yes Status: Chronic (5) Graves disease Current Visit: Yes Status: Chronic (6) Mediastinal lymphadenopathy Current Visit: Yes Status: Acute (7) Hematuria Current Visit: Yes Status: Acute Qualifiers: Hematuria type: unspecified type Qualified Code(s): R31.9 - Hematuria, unspecified (8) Elevated troponin Current Visit: Yes Status: Acute (9) Dysarthria Current Visit: Yes Status: Acute (10) Hemiplegia affecting dominant side, post-stroke Current Visit: Yes Status: Acute - Subjective Interval history: Patient was seen and assessed at 1100. Pt was performing oral hygiene independently. R hemiplegia remains, speech remains garbled, but some words consistently plain and understandable. Pt denies headache, chest pain, nausea, or abdominal pain. Denies vision changes or dizziness/lightheadeded. Pt was aware of transfer to [facility] and is agreeable. - Constitutional Vitals: Temp Pulse Resp BP Pulse Ox 98.1 F 68 16 131/70 92 05/17/17 11:00 05/17/17 11:00 05/17/17 11:00 05/17/17 11:00 05/17/17 11:00 General appearance: Present: cooperative, pleasant, no acute distress, answers questions appropriately Internal Medicine: Result - Labs CBC & Chem 7: 05/16/17 05:05 05/16/17 05:05 - ABG Interpretation ABG results: PT/INR, D-dimer PT 14.0 Seconds (9.4-12.1) H 05/12/17 19:35 Consult Discharge Plan - Plan Referrals: Priyanka Torres MD [Primary Care Provider] -
--- NOTE | 2017-05-17 15:47 | Discharge Summary ---
Date of Encounter: 05/17/17 Time of Encounter: 11:00 - Discharge Diagnosis (1) CVA (cerebral vascular accident) Priority: Primary Status: Acute Comments: Patient with new onset right-sided paralysis, aphasia. She was found on the floor by her family after they were notified by alarm company. CT head shows no acute infarct/bleed. MRI showed acute infarct with additional microinfarcts within the high left frontoparietal lobe and right parieto-occipital lobe. CTA head shows critical stenosis of the proximal right cervial ICA, short segment occlusion of the M1 segment of the left MCA. Patient with embolic stroke involving both hemispheres with coexisting right ICA critical stenosis, left MCA M1 occlusion. TTE without significant pathology. VINCENT with no identifiable intracardiac source for recent CVA. Mild prolapsing of the anterior mitral valve leaflets with trivial mitral regurgitation. There is no PFO noted. 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 Patient has been evaluated by neurology, as well as vascular surgery. Surgical intervention at this time is not indicated, if patient demonstrates significant improvement, potentially an endarterectomy could be discussed in the future. Vascular surgery could potentially be discussed 3 mos post CVA. Pt will be kept on ASA and statin. Right side remained flaccid. Patient also evaluated by speech therapy, she will be on nectar thick liquids. She has regained some speech, however, primarily speech is garbled. Right hemiplegia remains. Pt will have PT rehab at [facility]. She is able to feed herself her breakfast and perform oral care this a.m. Pt is being discharged to [facility] for rehab, will go to [facility]-down [facility]. Head CT 05/12/17 06:02 IMPRESSION: No acute intracranial abnormality. Mild chronic small vessel ischemic disease within the periventricular white matter D/ / Joseph Bowen MD / Joseph Bowen MD Interpreting Provider: Joseph Bowen MD Brain MRI 05/12/17 10:11 IMPRESSION: Acute infarct within the left mid strickland radiata extending into the ipsilateral basal ganglia, with additional microinfarcts seen within the high left frontoparietal lobe and right parieto-occipital lobe. Possible partial thrombosis of the left MCA. The findings were sent to the [facility] at 4:47 pm on 05/12/2017to be communicated to a licensed caregiver. D/ / Erwin Dickens MD / Erwin Dickens MD Interpreting Provider: Erwin Dickens MD Echocardiogram 05/12/17 10:39 Impressions: LVEF 60%. Mild left ventricular diastolic dysfunction. Normal right ventricular structure and function. Mild prolapsing of the anterior mitral valve leaflet with mild mitral regurgitation. Mild-moderate tricuspid regurgitation. No pulmonary hypertension. No evidence of PFO with agitated saline contrast. Left Ventricular Wall Motion: Rest Echo Findings All wall segments showed normal motion. Angiography CT 05/12/17 19:08 IMPRESSION: Critical stenosis of the proximal right cervical ICA. Short segment occlusion of the M1 segment of the left MCA. Incidentally noted mediastinal adenopathy with several of the lymph nodes demonstrating CT characteristics concerning for metastatic disease. Also, small spiculated nodule within the right lung apex. Multinodular goiter. The findings were sent to the Radiology Results Communication [facility] at 11:58 pm on 05/12/2017to be communicated to a licensed caregiver. D/ / Erwin Dickens MD / Erwin Dickens MD Interpreting Provider: Erwin Dickens MD Neck CTA 05/12/17 19:08 IMPRESSION: Critical stenosis of the proximal right cervical ICA. Short segment occlusion of the M1 segment of the left MCA. Incidentally noted mediastinal adenopathy with several of the lymph nodes demonstrating CT characteristics concerning for metastatic disease. Also, small spiculated nodule within the right lung apex. Multinodular goiter. The findings were sent to the [facility] Results Communication [facility] at 11:58 pm on 05/12/2017to be communicated to a licensed caregiver. D/ / Erwin Dickens MD / Erwin Dickens MD Interpreting Provider: Erwin Dickens MD Videofluoroscopic Swallow 05/13/17 00:01 IMPRESSION: Rapid aspiration seen with thin liquids. Brief penetration seen with nectar thick liquids, in 1 of 3 administrations. Please see separate speech pathology report for full discussion of findings and recommendations. D/ / Rambo Rolon MD / Rambo Rolon MD Interpreting Provider: Rambo Rolon MD Qualifiers: CVA mechanism: embolism Precerebral and cerebral artery: unspecified precerebral artery Qualified Code(s): I63.10 - Cerebral infarction due to embolism of unspecified precerebral artery (2) Lung nodule Priority: Secondary Status: Acute Comments: Incidental finding and neck CT angiogram is a 15 mm spiculated in nodule within right upper lobe, as well as multiple hypoattenuating masses within the thyroid gland, as well as mediastinal lymphadenopathy. Chest CT showed enlarged lymph nodes, right paratracheal lymph node 3.2 x 2.7, subcarinal lymph node 3.9 x 2.6. There is a spiculated mass seen within the right lower lobe measuring 3.7 x 3.3 cm, additional spiculated nodes are seen within the right upper lung, one measuring 1.5 x 1.5 cm, there is a small spiculated nodular lesion in the posterior right upper lobe measuring 5 x 5 mm. There is a small right pleural effusion. No metastatic disease noted within the abdomen on a noncontrast CT. Findings are concerning for metastatic disease and oncology was consulted. Pt had biopsy of node 05/14/17, results pending. Multiple cancer marker labs ordered with the direction of oncology, CEA elevated at 74.3, and CA 125 within normal limits. Ca27.29 elevated, Ca19-9 ag WNL. Oncology will follow up with pt after results of biopsy are complete. Angiography CT 05/12/17 19:08 IMPRESSION: Critical stenosis of the proximal right cervical ICA. Short segment occlusion of the M1 segment of the left MCA. Incidentally noted mediastinal adenopathy with several of the lymph nodes demonstrating CT characteristics concerning for metastatic disease. Also, small spiculated nodule within the right lung apex. Multinodular goiter. The findings were sent to the Radiology Results Communication [facility] at 11:58 pm on 05/12/2017to be communicated to a licensed caregiver. D/ / Erwin Dickens MD / Erwin Dickens MD Interpreting Provider: Erwin Dickens MD Chest CT 05/13/17 19:25 IMPRESSION: 1. The abnormality seen on the CTA of the neck are explained by a right lower lobe mass, concerning for primary lung carcinoma. 2. There is evidence of metastatic disease to the right lung, as well as to the mediastinal lymph nodes. 3. Definite metastatic disease within the abdomen pelvis is not identified, but examination is limited without intravenous contrast. D/ / Ivan Fuchs MD / Ivan Fuchs MD Interpreting Provider: Ivan Fuchs MD (3) Essential hypertension Priority: Secondary Status: Chronic Comments: Home medications restarted yesterday, BP WNL. Continue home medications. (4) Tobacco abuse Priority: Secondary Status: Chronic (5) Graves disease Priority: Secondary Status: Chronic Comments: Per pt history. Thyroid L lobe nodule-filled. Continue home medications. TSH WnL. (6) Mediastinal lymphadenopathy Priority: Secondary Status: Acute Comments: Per CAT scan. Plan as above. Pt was seen by oncology. They are following along , I appreciate their recommendations and consultation. Still awaiting biopsy results. (7) Hematuria Priority: Secondary Status: Acute Comments: Patient was on heparin gtt. Patient developed hematuria. Dr. Blanca and I discussed the hematria, heparin drip was stopped and UA sent. We will continue to monitor. Patient has a Ricardo. We will continue to watch for hematuria. On discharge we will recheck. If patient still has hematuria we will only do aspirin 325 mg. If patient does not have hematuria on discharge, we will add Plavix 75 mg 2 aspirin 81 mg daily. UA on 05/13 with large amount of blood, too numerous to count microscopic red cells. A culture was indicated. There is no bacteria present, there is a small amount leukocyte esterase. Urine culture negative. Repeated UA only on 05/15, Moderate amount of blood, hgb steady, although declining. Labs ordered for anemia. UA repeated today, 05/17. Hgb stable. urine collected again today, lg amount of urine. Pt will not be started on Plavix at discharge, will continue on ASA 325mg po daily. [facility] will need to reassess urine and evaluate for addition of Plavix in the future. Qualifiers: Hematuria type: unspecified type Qualified Code(s): R31.9 - Hematuria, unspecified (8) Elevated troponin Priority: Secondary Status: Acute Comments: Most likely due to demand ischemia, reactive. Has remained stable, adynamic. Will continue to monitor and watch for increase. I discussed this with cardiology [facility] who states that pt is not stable enough for LHC or stress, but to consult them if needed. Pt denies chest pain. Monitor remains NSR. (9) Dysarthria Priority: Secondary Status: Acute Comments: Pt has recovered some speech, is able to speak in broken sentences, still difficult to understand at times. Speech is slurred, but has improved. Continue therapy at [facility]. (10) Hemiplegia affecting dominant side, post-stroke Priority: Secondary Status: Acute Comments: Pt has recovered some speech, is able to speak in broken sentences, still difficult to understand at times. Speech is slurred, but has improved. Continue therapy. - Discharge Medications Home Medications: Atenolol [Tenormin] 25 mg PO DAILY 05/12/17 [History] Pravastatin Sodium 10 mg PO DAILY 05/12/17 [History] methIMAzole [Methimazole] 10 mg PO DAILY 05/12/17 [History] Calcium Carbonate [Tums] 1,000 mg PO TID tab.chew 05/17/17 [Rx] Docusate [Colace] 100 mg PO BID capsule 05/17/17 [Rx] Ferrous Sulfate 325 mg PO DAILY@0800 #0 tablet 05/17/17 [Rx] Nicotine Patch [Nicoderm] 14 mg TD DAILY #0 patch.td24 05/17/17 [Rx] Ondansetron [Zofran] 4 mg IVP Q8HR PRN vial 05/17/17 [Rx] Potassium Chloride Elixir [Potassium Chloride] 20 meq PO BID udc 05/17/17 [Rx] Allergies/Adverse Reactions: 3 Allergy/AdvReac Type Severity Reaction Status Date / Time No Known Allergies Allergy Verified 05/12/17 05:55 Date of admission: 05/12/17 10:28 Primary care physician: Priyanka Torres MD Consults: 05/12/17 14:34 Consult to Vascular Surgery [CONS] Routine Consulting Provider: Vascular Surgery Lelia Reason for Consult: 80-99% stenosis at carotid bifurcation and mobile plaque in proximal left ICA Call Completed: Yes 05/13/17 19:25 Consult to Interventional Radiology [CONS] Routine Consulting Provider: Radiology Interventional Cols Reason for Consult: biopsy left supra clavicular node Call Completed: No Discharging clinician: Daniela Rivera Anticipated date of discharge: 05/17/17 - Patient Status Disposition: Transfer Inpatient Rehab Fac Condition: Good Functional capacity at discharge: bed bound Overall status at discharge: patient is not back to baseline - Discharge Instructions Follow Up With: Priyanka Torres MD [Primary Care Provider] - - Diet and Activity Activity: as per physical therapy, resume usual activities as tolerated Hospital course: Ms. Stephenson is a 87 year old female - Time Spent with Patient Total time spent providing and/or coordinating discharge services: - Constitutional Vitals: Temp Pulse Resp BP Pulse Ox 98.1 F 68 16 131/70 92 05/17/17 11:00 05/17/17 11:00 05/17/17 11:00 05/17/17 11:00 05/17/17 11:00 General appearance: Present: cooperative, pleasant, no acute distress, answers questions appropriately - Head Head exam: Present: atraumatic, normal inspection, normocephalic - Eye Eye exam: Present: normal appearance, conjuntiva pink, sclera anicteric - Neck Neck exam general surgery: Present: supple, trachea midline. Absent: lymphadenopathy, tenderness - Respiratory Respiratory exam: Present: CTAB. Absent: accessory muscle use, rales, respiratory distress, rhonchi, wheezes - Cardiovascular Cardiovascular exam: Present: RRR, +S1, +S2. Absent: diastolic murmur, gallop, rubs, systolic murmur - GI/Abdominal GI/Abdominal exam: Present: normal bowel sounds, soft, no peritoneal signs. Absent: distended, tenderness - Extremities Exam Extremities exam: Present: warm, radial pulses palpable and symmetrical. Absent : calf tenderness, cyanotic, pedal edema - Neurological Exam Neurological exam: Present: alert, pronater drift, facial droop, speech deficit. Absent: strengths equal and symetr throughout - Skin Skin exam: Present: dry, intact, normal color, warm. Absent: rash
[2017-05-17 16:19] VITALS: BP 161/80
[2017-05-17 16:24] LABS: Bilirubin,Urine Negative (Negative); Blood,Urine Large (Negative); Clarity,Urine Cloudy (Clear); Color,Urine Yellow (Yellow); Glucose,Urine (UA) Normal (Normal); Ketones,Urine Negative (Negative); Leukocyte Esterase,Urine Trace (Negative); Nitrite,Urine Negative (Negative); Protein,Urine Trace mg/dL (Neg-Trace); Specific Gravity,Urine 1.023 (1.010-1.025); Urobilinogen,Urine Normal (Normal)
--- NOTE | 2017-05-17 17:43 | Oncology Inp Progress Note ---
Date of Encounter: 05/17/17 Time of Encounter: 17:30 (1) CVA (cerebral vascular accident) Current Visit: Yes Status: Acute Assessment and plan: Contiinue with medication management. Would hold on carotid artery intervention secondary to underlying cancer which is likely contributing factor of her stroke. Qualifiers: CVA mechanism: embolism Precerebral and cerebral artery: unspecified precerebral artery Qualified Code(s): I63.10 - Cerebral infarction due to embolism of unspecified precerebral artery (2) Lung nodule Current Visit: Yes Status: Acute Assessment and plan: Clinically, this likely represents lung cancer. Will f/u pathology and contact family with results once available. We are in a difficult predicament regarding her cancer; we are unable to treat while in rehab. I have encouraged her to pursue aggressive rehab, and focus on stroke recovery. However, time is of the essence and her cancer will likely impact her ability to rehabilitate to a minor to potentially significant degree. If we are not making strides in 3-4 weeks, may need to readdress goals of care. Family voiced understanding. WIll set up f/u in 2 weeks with me. My contact info was provided. Oncology: Subj Interval history: Ms. Stephenson is doing okay. Speaking with her daughters, they have noted some improvements, although she is completely hemiplegic on the right. She has contined aphasia and is minimally verbal tonight. Most history if from the daughters. Planning to go to rehab tonight tentatively. - Constitutional Vitals: Vital Signs Temp Pulse Resp BP Pulse Ox 05/17/17 16:14 98.0 F 74 16 161/80 92 05/17/17 11:00 98.1 F 68 16 131/70 92 05/17/17 08:15 92 05/17/17 08:10 99.0 F 79 16 159/80 92 05/17/17 03:48 98.2 F 73 16 164/83 95 05/16/17 23:24 98.4 F 78 16 173/90 92 05/16/17 19:06 98.4 F 79 16 159/79 93 Intake and Output 05/17/17 05/17/17 05/18/17 08:59 16:59 00:59 Intake Total 240 / 240 Output Total 800 / 800 700 / 700 Balance -800 / -800 -460 / -460 Intake: Oral 240 / 240 Output: Catheter 800 / 800 700 / 700 Other: Meal Lunch Percent of Meal Consumed 50% Weight 54.975 kg Patient Weight 05/18/17 00:59 Weight 54.975 kg General appearance: cooperative, no acute distress, thin - Head Head exam: Present: atraumatic, normal inspection, normocephalic - Eye Eye exam: Present: conjuntiva pink, sclera anicteric - ENT ENT exam: Present: mucous membranes moist, normal oropharynx - Neck Neck exam: Present: full ROM, normal inspection - Respiratory Respiratory exam: Present: CTAB - Cardiovascular Cardiovascular exam: Present: RRR - GI/Abdominal GI/Abdominal exam: Present: normal bowel sounds, soft - Extremities Exam Extremities exam: Present: pedal edema - Neurological Exam Neurological exam: Present: alert, motor sensory deficit, oriented X3, facial droop Oncology: Obj Data - Labs CBC & Chem 7: 05/16/17 05:05 05/16/17 05:05 Labs: Laboratory Results - last 24 hr 05/13/17 05/17/17 20:10 16:00 Tumor Marker AFP 5 CA 19-9 Antigen 12 CA 27.29 (off-site) 93.4 H Thyroglobulin 270.2 H Thyroglobulin LC-MS/MS NOT APPLICABLE Urine Color Yellow Urine Clarity Cloudy A Urine pH 6.0 Ur Specific [place] 1.023 Urine Protein Trace Urine Glucose (UA) Normal Urine Ketones Negative Urine Blood Large H Urine Nitrite Negative Urine Bilirubin Negative Urine Urobilinogen Normal Ur Leukocyte Esterase Trace H Thyroglobulin Antibody <0.9 - ABG Interpretation ABG results: PT/INR, D-dimer PT 14.0 Seconds (9.4-12.1) H 05/12/17 19:35 Consult Discharge Plan - Plan Referrals: Priyanka Torres MD [Primary Care Provider] -
--- NOTE | 2017-05-17 18:02 | Physician Discharge Referral ---
ExtendedCare Referral Info Transfer To: [facility] Provider in Charge after Transfer: PCP Institutional Level of Care: Skilled - Diagnosis (1) CVA (cerebral vascular accident) Priority: Primary Status: Acute (2) Lung nodule Priority: Secondary Status: Acute (3) Essential hypertension Priority: Secondary Status: Chronic (4) Tobacco abuse Priority: Secondary Status: Chronic (5) Graves disease Priority: Secondary Status: Chronic (6) Mediastinal lymphadenopathy Priority: Secondary Status: Acute (7) Hematuria Priority: Secondary Status: Acute (8) Elevated troponin Priority: Secondary Status: Acute (9) Dysarthria Priority: Secondary Status: Acute (10) Hemiplegia affecting dominant side, post-stroke Priority: Secondary Status: Acute Prognosis: Fair Aware of Diagnosis: Patient Aware of Prognosis: Family - Transfer Medications Home Medications: Atenolol [Tenormin] 25 mg PO DAILY 05/12/17 [History] Pravastatin Sodium 10 mg PO DAILY 05/12/17 [History] methIMAzole [Methimazole] 10 mg PO DAILY 05/12/17 [History] Calcium Carbonate [Tums] 1,000 mg PO TID tab.chew 05/17/17 [Rx] Docusate [Colace] 100 mg PO BID capsule 05/17/17 [Rx] Ferrous Sulfate 325 mg PO DAILY@0800 #0 tablet 05/17/17 [Rx] Nicotine Patch [Nicoderm] 14 mg TD DAILY #0 patch.td24 05/17/17 [Rx] Ondansetron [Zofran] 4 mg IVP Q8HR PRN vial 05/17/17 [Rx] Potassium Chloride Elixir [Potassium Chloride] 20 meq PO BID udc 05/17/17 [Rx] Allergies/Adverse Reactions: 3 Allergy/AdvReac Type Severity Reaction Status Date / Time No Known Allergies Allergy Verified 05/12/17 05:55 - Respiratory Orders Oxygen / L per min Smoking Cessation: Smoking cessation has been advised. For more information, call the [employer] Tobacco Quit Line at [phone]-NOW. - Lab Orders Lab Orders: 2 Step Mantoux Test per State regulation, CBC, U/A - Advance Directives Living Will: Yes Power of Beam Press Operator: No Code Status: Full Code - Mobility Orders Chair - Rehabiliation Orders Rehab Potential: Fair Rehab Orders: Sternal Precautions, ROM Exercises, Evaluation for Physical Therapy, Evaluation for Occupational Therapy, Evaluation for Speech Therapy - Treatments Skin tear care topically daily PRN per policy, May check for fecal impaction rectally daily PRN, Fleet enema rectally every other day PRN cleansing purposes - Diet Orders Mechanical Soft CERTIFICATION: I certify that the transfer of the above named patient to an Extended Care Facility is necessary for the continuing treatment of the diagnosis listed. The above information is true and accurate reflection of patient's current condition. Confidential - Redisclosure prohibited without a patient's written consent.
--- NOTE | 2017-05-17 18:58 | Oncology Inp Progress Note ---
Date of Encounter: 05/17/17 Time of Encounter: 15:00 Oncology: Subj Interval history: Resting in no acute distress. Daughters at bedside. Denies pain. - Constitutional Vitals: Vital Signs Temp Pulse Resp BP Pulse Ox 05/17/17 16:14 98.0 F 74 16 161/80 92 05/17/17 11:00 98.1 F 68 16 131/70 92 05/17/17 08:15 92 05/17/17 08:10 99.0 F 79 16 159/80 92 05/17/17 03:48 98.2 F 73 16 164/83 95 05/16/17 23:24 98.4 F 78 16 173/90 92 05/16/17 19:06 98.4 F 79 16 159/79 93 Intake and Output 05/17/17 05/17/17 05/17/17 07:59 15:59 23:59 Intake Total 240 / 240 Output Total 800 / 800 700 / 700 Balance -800 / -800 -460 / -460 Intake: Oral 240 / 240 Output: Catheter 800 / 800 700 / 700 Other: Meal Lunch Percent of Meal Consumed 50% Weight 54.975 kg Patient Weight 05/17/17 23:59 Weight 54.975 kg Oncology: Obj Data - Labs CBC & Chem 7: 05/16/17 05:05 05/16/17 05:05 Labs: Laboratory Results - last 24 hr 05/13/17 05/17/17 20:10 16:00 Tumor Marker AFP 5 CA 19-9 Antigen 12 CA 27.29 (off-site) 93.4 H Thyroglobulin 270.2 H Thyroglobulin LC-MS/MS NOT APPLICABLE Urine Color Yellow Urine Clarity Cloudy A Urine pH 6.0 Ur Specific [place] 1.023 Urine Protein Trace Urine Glucose (UA) Normal Urine Ketones Negative Urine Blood Large H Urine Nitrite Negative Urine Bilirubin Negative Urine Urobilinogen Normal Ur Leukocyte Esterase Trace H Thyroglobulin Antibody <0.9 - ABG Interpretation ABG results: PT/INR, D-dimer PT 14.0 Seconds (9.4-12.1) H 05/12/17 19:35 Consult Discharge Plan - Plan Instructions: Influenza Virus Vaccine (Injection), Ischemic Stroke (DC), Ischemic Stroke (GEN), Hemorrhagic Stroke (DC), Hemorrhagic Stroke (GEN), Chronic Hypertension (DC) Referrals: Priyanka Torres MD [Primary Care Provider] -
== END 2017-05-17 19:15 | DRG 40 ==
LOC: 3BNU 05:52 → EMEROO 05:52 → 3BNU 08:48
PROVIDERS: ADMIT Internal Medicine; ATTEND Internal Medicine